=== PATIENT | male | born 1940 | race Caucasian/White ===

== ENCOUNTER → 2021-07-04 14:38 | Outpatient (BNVA) | payer MEDICARE, SELFPAY | PROVIDERS: PCP Internal Medicine; Visit Provider Internal Medicine | DX: J43.9 Emphysema, unspecified (principal); R06.00 Dyspnea, unspecified | CPT/HCPCS: 99202 ==

== ENCOUNTER 2021-07-24 13:46 | Outpatient (REF) | payer MEDICARE, SELFPAY ==
--- NOTE | 2021-07-24 17:22 | PFT_ITS ---
Forced vital capacity 101, FEV1 81, FEV1/FVC ratio 56, SIU39-90 is 42%, and MVV 72%. Post bronchodilator therapy, there is a slight improvement in [id number]. Total lung capacity 100%. Residual volume 119%. Diffusion capacity is markedly decreased. CONCLUSION: There is evidence of alde-th-ypomkvpy degree of obstructive airway disorder. Only minimal improvement noted as indicated by slight increase in [id number]. Diffusion capacity is markedly decreased and this may be due to non-pulmonary factors, but also may be due to pulmonary vascular disease or pulmonary emphysema. Clinical correlation is recommended. MD LEWIS Rod/MODBen / [id number]
== END 2021-07-24 13:47 | disposition home or self-care (01) ==
LOC: HO.RESP 13:46
PROVIDERS: PCP Internal Medicine; Visit Provider Internal Medicine
DX: R06.00 Dyspnea, unspecified (principal); J43.9 Emphysema, unspecified
CPT/HCPCS: 94060; 94727; 94729

== ENCOUNTER → 2021-08-01 13:37 | Outpatient (BNVA) | payer MEDICARE, SELFPAY | PROVIDERS: PCP Internal Medicine; Visit Provider Internal Medicine | DX: J44.9 Chronic obstructive pulmonary disease, unspecified (principal); R06.00 Dyspnea, unspecified; I73.00 Raynaud's syndrome without gangrene; Z79.899 Other long term (current) drug therapy | CPT/HCPCS: 99212 ==

== ENCOUNTER → 2021-10-08 12:59 | Outpatient (BNVA) | payer MEDICARE, SELFPAY | PROVIDERS: PCP Internal Medicine; Visit Provider Internal Medicine | DX: J44.9 Chronic obstructive pulmonary disease, unspecified (principal); R06.00 Dyspnea, unspecified | CPT/HCPCS: 99212 ==

== ENCOUNTER → 2022-04-09 13:14 | Outpatient (BNVA) | payer MEDICARE, SELFPAY | PROVIDERS: PCP Internal Medicine; Visit Provider Internal Medicine | DX: J44.9 Chronic obstructive pulmonary disease, unspecified (principal); R06.00 Dyspnea, unspecified | CPT/HCPCS: 99212 ==

== ENCOUNTER → 2022-10-09 13:19 | Outpatient (BNVA) | payer MEDICARE, SELFPAY | PROVIDERS: PCP Internal Medicine; Visit Provider Internal Medicine | DX: J43.9 Emphysema, unspecified (principal) | CPT/HCPCS: 99212 ==

== ENCOUNTER 2023-04-01 13:19 | Outpatient (AMB) | payer MEDICARE, SELFPAY ==
[2023-04-01 13:42] VITALS: BP 94/52; PULSE 74; O2SAT 94; BMI 24.2
--- NOTE | 2023-04-01 13:42 | MHC.OFFVIS ---
Intake Vital Signs 04/01/23 13:42 Height 5 ft 9 in Weight 164 lb BMI 24.2 BP 94/52 L Blood Pressure Location Lt brachial Position Sitting Pulse 74 Pulse Source Pulse Oximeter Pulse Oximetry (%) 94 Oxygen Delivery Method Room Air Intake Visit Reasons: COPD Intake Note: pt is here for follow up and states things aren't any better but things are not worse. Green Marketer Required: No Allergies zithomax Adverse Reaction (Severe, Uncoded 04/01/23 14:13) Unknown Medication List - Last Reconciled 04/01/23 by Donny Peña MD allopurinol 300 mg PO DAILY apixaban (Eliquis) 5 mg PO BID diltiazem HCl 240 mg PO DAILY doxycycline hyclate 100 mg PO BID 10 days fluticasone propion-salmeterol 250-50 mcg/dose (Wixela Inhub) 1 ea inhalation Q12H furosemide 40 mg PO DAILY furosemide 20 mg PO .mwf gemfibrozil 600 mg PO BEDTIME metoprolol tartrate 50 mg PO BID Do you need a note to return to daycare/school/sports/work: No HPI COPD HPI Details DANI IS 83 YEARS OLD VERY PLEASANT GENTLEMAN, COMES OF TO 6 MONTHS FOR FOLLOW-UP. PULMONARY STATUS HAS REMAINED VERY STABLE WITHOUT ANY WORSENING. HE CONTINUE TO HAVE MILD INTERMITTENT COUGH AND GETS SHORT OF BREATH WHEN HE HAS TO EXERT. USES WIXELA 250-50 1 INHALATION B.I.D., AND RARELY NEEDS TO USE THE ALBUTEROL INHALER. HE HAD COVID INFECTION IN JUNE 2022 AND NOT AFTERWARDS. HE HAS RECEIVED THE COVID BOOSTER A FEW WEEKS AGO. [facility] Medical History Raynauds syndrome COPD (chronic obstructive pulmonary disease) SANTILLAN (dyspnea on exertion) Pulmonary emphysema Social History Patient Tobacco Use Status: Former Tobacco user Review of Systems Const All systems reviewed & are unremarkable except as noted in HPI and below Eyes Reports no additional complaints ENT Reports nasal congestion (Mild off and on) Card Denies chest pain, Reports irregular heart rhythm (RATE WELL CONTROLLED) and Denies leg edema Resp Reports as per HPI GI Reports no additional complaints Reports no additional complaints Musc Reports no additional complaints Skin/Breast Reports system reviewed and no additional complaints, except as documented and Reports other (His hands get very cold and bluish when he walks outdoors in cold weather) Neuro Reports no additional complaints Psych Reports no additional complaints Physical Exam Vital Signs: Last Vital Signs Pulse 74 04/01/23 13:42 BP 94/52 L 04/01/23 13:42 Pulse Ox 94 04/01/23 13:42 Oxygen Delivery Method Room Air 04/01/23 13:42 BMI result Body Mass Index 24.2 Const General: comfortable, no acute distress, alert and awake Orientation/consciousness: patient oriented x3 HEENT Head: Yes normal to inspection General nose exam: No nasal polyps present and No nasal discharge present Face and sinus: Yes sinuses nontender Mouth: oropharynx normal Throat: Yes posterior oropharynx normal Eyes General: appearance normal, both eyes and all related structures Neck Neck: Yes normal visual inspection, Yes no lymphadenopathy, Yes trachea midline and Yes no JVD Thyroid: Thyroid normal Chest Chest palpation & inspection: normal inspection of the chest (EXCEPT FOR A SURGICAL SCAR OVER THE LEFT UPPER THORACIC AREA, FROM AN OLD S), normal palpation of entire chest wall and no tenderness Resp Other: Percussion note resonant, breath sounds are distant with slightly prolonged expiratory phase. No wheezes rhonchi or crepitations are heard. Cardio Palpation: normal PMI Rate: regular rate Rhythm: abnormal rhythm (Afib) Heart sounds: no gallops and no murmurs GI Palpation (GI): Soft to palpation, nontender, No hepatosplenomegaly present and no masses Auscultation: normal bowel sounds Back/Spine/Pelvis Thoracic/Lumbar Spine: thoracic and lumbar spine normal to inspection Skin General skin exam: no rashes or lesions noted and other (Both hands cold and bluish, returned to normal after warming) Neuro General: patient oriented x3 and no focal motor deficits Cranial nerves: Yes CN's II-XII intact bilaterally Extrem General: Yes normal to inspection, Yes no clubbing, cyanosis or edema and Yes no calf tenderness Psych Appearance: grossly normal and well kempt Speech and movement: Normal speech and movement present Assessment & Plan Assessment & Plan (1) Pulmonary emphysema: Comment: CLINICALLY WELL ACCORDING TO CT SCAN OF THE CHEST HE DOES HAVE SIGNIFICANT DEGREE OF PULMONARY EMPHYSEMA. LUCKILY HIS PULMONARY FUNCTION TEST IS WELL PRESERVED, EXCEPT FOR DECREASED DLCO. THIS MAY EXPLAIN DYSPNEA ON EXERTION , DUE TO PULMONARY EMPHYSEMA AND LOW DLCO. Code(s): J43.9 - Emphysema, unspecified (2) COPD (chronic obstructive pulmonary disease): Comment: PER PULMONARY FUNCTION TEST PATIENT DOES HAVE EVIDENCE OF MILD TO MODERATE DEGREE OF OBSTRUCTIVE AIRWAY DISORDER ( COPD ) WITH PARTIAL RESPONSE TO BRONCHODILATOR THERAPY. TX : CONTINUE WIXELA 250-50 1 INHALATION B.I.D. USE PROAIR 2 PUFFS Q 6 HOURS ONLY P.R.N., Code(s): J44.9 - Chronic obstructive pulmonary disease, unspecified Coding Level of Care Code Est Pt Level 3 (81783) Diagnoses Pulmonary emphysema J43.9 COPD (chronic obstructive pulmonary disease) J44.9
== END 2023-04-01 14:13 | disposition home or self-care (01) ==
PROVIDERS: PCP Internal Medicine; Visit Provider Internal Medicine
DX: J44.9 Chronic obstructive pulmonary disease, unspecified (principal)
CPT/HCPCS: 99213

== ENCOUNTER → 2023-04-01 13:19 | Outpatient (BNVA) | payer MEDICARE, SELFPAY | PROVIDERS: Visit Provider Internal Medicine | DX: J43.9 Emphysema, unspecified (principal) | CPT/HCPCS: 99212 ==

== ENCOUNTER 2023-06-03 13:44 | Outpatient (AMB) | payer MEDICARE, SELFPAY ==
[2023-06-03 13:47] VITALS: BP 118/62; PULSE 77; O2SAT 95; BMI 24.4
--- NOTE | 2023-06-03 13:47 | MHC.OFFVIS ---
Intake Vital Signs 06/03/23 13:47 Height 5 ft 9 in Weight 165 lb BMI 24.4 BP 118/62 Blood Pressure Location Lt brachial Position Sitting Pulse 77 Pulse Source Pulse Oximeter Pulse Oximetry (%) 95 Oxygen Delivery Method Room Air Intake Visit Reasons: Fatigue/SOB Health Sciences Department Chair Required: No Global Sales Director: Global Sales Director offered & declined Accompanied by: Self / Same As Patient Allergies zithomax Adverse Reaction (Severe, Uncoded 06/03/23 13:53) Unknown Medication List - Last Reconciled 06/03/23 by Linda Estrada LPN allopurinol 300 mg PO DAILY apixaban (Eliquis) 5 mg PO BID diltiazem HCl 240 mg PO DAILY fluticasone propion-salmeterol 250-50 mcg/dose (Wixela Inhub) 1 ea inhalation Q12H furosemide 20 mg PO DAILY furosemide 40 mg PO DAILY gemfibrozil 600 mg PO BEDTIME metoprolol tartrate 50 mg PO BID HPI Fatigue/SOB HPI Details Giorgi is a pleasant 83 year old male, former smoker with 30pyh, quit 38+ years ago, with underlying COPD, emphysema, atrial fibrillation maintained on eliquis, h/o DVT PE, CHF (EF 55-60% 06/20) on lasix, and Raynaud's. At baseline, he is moderately controlled on Wixela and albuterol MDI. Today he presents for a hospital follow up. He reports worsening dyspnea on exertion with associated fatigue over 3-4 weeks and was evaluated at [facility] on 05/23/23 with symptoms consistent with CHF/COPD exacerbation. He also reported productive cough with dark sputum x 1 week. CXR revealed bilateral pleural effusions and bibasilar atlectasis with coarse interstitial markings, full report below. He was treated with IV lasix, duonebs and discharged on 5 days of oral prednisone. He did note that he had recently decreased his lasix in the weeks prior to ED and after discharge has been increased back to 40 mg 3x/ week and 20 mg 4x/week. He denies any BLE, although wears compression stockings and denies orthopnea. He is under the care of [facility]. He feels as though he is back to baseline now, which is dyspnea with moderate exertion however he does note occasionally he is breathless with minimal exertion such as getting dressed. Of note, his DLCO from was [address] revealed severe emphysema. [facility] Medical History Raynauds syndrome COPD (chronic obstructive pulmonary disease) SANTILLAN (dyspnea on exertion) Pulmonary emphysema Social History (Updated 06/03/23 @ 13:56 by Linda Estrada LPN) Patient Tobacco Use Status: Former Tobacco user Smoked in Last 30 Days: No Review of Systems ENT Reports Normal hearing present Neuro Reports Normal hearing present Physical Exam Vital Signs: Last Vital Signs Pulse 77 06/03/23 13:47 BP 118/62 06/03/23 13:47 Pulse Ox 95 06/03/23 13:47 Oxygen Delivery Method Room Air 06/03/23 13:47 BMI result Body Mass Index 24.4 Const General: cooperative, healthy appearing, comfortable, no acute distress, well developed and alert Orientation/consciousness: patient oriented x3 Limitations: no limitations HEENT Head: Yes normal to inspection, Yes normocephalic and Yes atraumatic Ears: hearing grossly normal bilaterally and external ears normal Eyes General: appearance normal, both eyes and all related structures Eyelids: Yes eyelids normal Sclerae: sclerae normal EOM: EOMs intact bilaterally Neck Neck: Yes normal visual inspection and Yes no lymphadenopathy Lymphatic: no lymphadenopathy noted Chest Chest palpation & inspection: normal inspection of the chest Resp Other: diminished lung sounds bilaterally Effort & Inspection: normal respiratory effort, able to speak in complete sentences, no audible wheezes, no cough, no stridor, not tachypneic, no tripod positioning and no use of accessory muscles Cardio Jugular venous distension: no JVD Rate: regular rate Rhythm: regular rhythm Skin Other: warm, dry General skin exam: no rashes or lesions noted Neuro General: patient oriented x3 Cranial nerves: Yes Normal hearing present Cognition (Neuro): normal cognition Gait exam (Neuro): Normal gait present Extrem General: Yes normal to inspection, Yes capillary refill normal, Yes no clubbing, cyanosis or edema and Yes no pedal edema Psych Appearance: grossly normal and well kempt Speech and movement: Normal speech and movement present and Clear speech present Affect: normal affect Attitude: cooperative Thought process: Normal thought process present Thought content: Normal thought content present Insight: Good insight present (Psych) Judgement: Good judgement present (Psych) Office Procedures 6 Minute Walk Time:: 14:20 SPO2 % at rest: 96 Pulse at rest: 70 SPO2 % during excercise: 83 Pulse during excercise: 90 SPO2 % after excercise: 94 Pulse after excercise: 80 Distance in yards walked: 250 Performance Observations:: Patient walked on level ground unassisted at moderate pace. After approx 100 yards patient's O2 saturation decreased to 89% and he expressed fatigue. Upon sitting his O2 saturation was 83% pulse rate 90. O2 applied via nasal cannula at 1L. After a couple of minutes O2 saturation increased to 93%. Patient walked additional 50 yards and saturation decreased to 87%. O2 increased to 2L. Raissa walked approx 100 yards more and O2 saturation remained at 92%. Patient reports he gets short of breath and tires easily when walking on an incline or any distance. Patient would benefit from the use of supplemental O2 at 2L. [id number] - 6 Minute Walk Results Reviewed Results Reviewed: Assessment & Plan Assessment & Plan (1) COPD (chronic obstructive pulmonary disease): Code(s): J44.9 - Chronic obstructive pulmonary disease, unspecified (2) CHF (congestive heart failure): Code(s): I50.9 - Heart failure, unspecified Plan Giorgi presents for hospital follow up after recent admission at [facility] for CHF/COPD exacerbation. He continues to report dyspnea on minimal to moderate exertion. 6MWT was performed and patient desaturated to 83%, requiring 2 liters of supplemental oxygen with ambulation. We discussed the importance of supplemental oxygen and the adverse effects of hypoxia. At this time, patient states he is in the donid hole for medicare and would like to hold off on receiving a prescription for supplemental oxygen. Patient is aware if he would like to proceed with supplemental oxygen he will call the office. Encouraged patient to use his home pulse oximeter when ambulating to monitor oxygen saturation. All questions were answered and patient is in agreement of plan. Will follow up with Dr. Peña in September for regularly scheduled appointment or sooner if needed. Orders: Orders AMB 6 minute walk Today I50.9 - Heart failure, unspecified, J44.9 - Chronic obstructive pulmonary disease, unspecified Coding Level of Care Code Est Pt Level 4 (98457) Diagnoses COPD (chronic obstructive pulmonary disease) J44.9 CHF (congestive heart failure) I50.9 CPT Codes Coding ([id number])
[2023-06-03 14:52] VITALS: PULSE 70; O2SAT 96
== END 2023-06-03 15:49 | disposition home or self-care (01) ==
PROVIDERS: PCP Internal Medicine; Visit Provider Nurse Practitioner Family
DX: J44.9 Chronic obstructive pulmonary disease, unspecified (principal); I50.9 Heart failure, unspecified
CPT/HCPCS: 94618; 99214

== ENCOUNTER → 2023-06-03 13:44 | Outpatient (BNVA) | payer MEDICARE, SELFPAY | PROVIDERS: PCP Internal Medicine; Visit Provider Nurse Practitioner Family | DX: J44.9 Chronic obstructive pulmonary disease, unspecified (principal); I50.9 Heart failure, unspecified | CPT/HCPCS: 94618; 99212 ==

== ENCOUNTER 2023-07-14 10:30 | Outpatient (AMB) | payer MEDICARE, SELFPAY ==
[2023-07-14 10:38] VITALS: BP 108/64; PULSE 82; O2SAT 98; BMI 25.1
--- NOTE | 2023-07-14 10:38 | A.OFFVIS_ITS ---
Intake Vital Signs 07/14/23 10:38 Height 5 ft 9 in Weight 169 lb 12.095 oz BMI 25.1 BP 108/64 Blood Pressure Location Lt brachial Position Sitting Pulse 82 Pulse Source Doppler Pulse Oximetry (%) 98 Oxygen Delivery Method Nasal Cannula Oxygen Flow Rate 2 Intake Visit Reasons: new to oxygen Intake Note: Patient is here to follow up on new use of Oxygen (2L), patient c/o not being able to move around with oxygen tank. Patient started on oxygen for about 1 month ago. Allergies zithomax Adverse Reaction (Severe, Uncoded 07/14/23 11:17) Unknown Medication List - Last Reconciled 07/14/23 by Donny Peña MD allopurinol 300 mg PO DAILY apixaban (Eliquis) 5 mg PO BID diltiazem HCl 240 mg PO DAILY fluticasone propion-salmeterol 250-50 mcg/dose 1 inh inhalation Q12H furosemide 20 mg PO DAILY furosemide 40 mg PO DAILY gemfibrozil 600 mg PO BEDTIME metoprolol tartrate 50 mg PO BID Do you need a note to return to daycare/school/sports/work: No HPI new to oxygen HPI Details 83 years old very pleasant gentleman is here for follow-up after he was started on O2 therapy. He was seen by Gilda Xiong our nurse practitioner, on 06/03 for increased shortness of breath. This was post hospitalization visit. He was found to have hypoxemia and very quickly desaturated on walking. He was started on oxygen therapy. He uses stationary concentrator his O2 2 L/minute at nighttime. During the daytime when he goes up and down stairs he tries to use the portable cylinder, but complains it is heavy to carry around. Also claims that he does not feel much difference whether he is using the portable O2 are not. He does check his O2 sats and usually when sitting at rest it is in mid 90s, But when he goes downstairs without oxygen, it can be as low as 85-87. [facility] Medical History (Updated 07/14/23 @ 11:30 by Donny Peña MD) Hypoxemia Raynauds syndrome COPD (chronic obstructive pulmonary disease) SANTILLAN (dyspnea on exertion) Pulmonary emphysema Social History Patient Tobacco Use Status: Former Tobacco user Review of Systems Const All systems reviewed & are unremarkable except as noted in HPI and below Eyes Reports no additional complaints ENT Reports Normal hearing present and Reports nasal congestion (Mild off and on) Card Denies chest pain, Reports irregular heart rhythm (RATE WELL CONTROLLED) and Denies leg edema Resp Reports as per HPI GI Reports no additional complaints Reports no additional complaints Musc Reports no additional complaints Skin/Breast Reports system reviewed and no additional complaints, except as documented and Reports other (His hands get very cold and bluish when he walks outdoors in cold weather) Neuro Reports no additional complaints and Reports Normal hearing present Psych Reports no additional complaints Physical Exam Vital Signs: Last Vital Signs Pulse 82 07/14/23 10:38 BP 108/64 07/14/23 10:38 Pulse Ox 98 07/14/23 10:38 Oxygen Delivery Method Nasal Cannula 07/14/23 10:38 Oxygen Flow Rate 2 07/14/23 10:38 BMI result Body Mass Index 25.1 Const General: cooperative, healthy appearing, comfortable, no acute distress, well developed and alert Orientation/consciousness: patient oriented x3 Limitations: no limitations HEENT Head: Yes normal to inspection, Yes normocephalic and Yes atraumatic Ears: hearing grossly normal bilaterally and external ears normal Eyes General: appearance normal, both eyes and all related structures Eyelids: Yes eyelids normal Sclerae: sclerae normal EOM: EOMs intact bilaterally Neck Neck: Yes normal visual inspection and Yes no lymphadenopathy Lymphatic: no lymphadenopathy noted Chest Chest palpation & inspection: normal inspection of the chest, normal palpation of entire chest wall and no tenderness Resp Effort & Inspection: normal respiratory effort, able to speak in complete sentences, no audible wheezes, no cough, no stridor, not tachypneic, no tripod positioning and no use of accessory muscles Auscultation: no crackles and no wheezes Cardio Jugular venous distension: no JVD Rate: regular rate Rhythm: regular rhythm Skin Other: warm, dry General skin exam: no rashes or lesions noted Neuro General: patient oriented x3 Cranial nerves: Yes Normal hearing present Cognition (Neuro): normal cognition Gait exam (Neuro): Normal gait present Extrem General: Yes normal to inspection, Yes capillary refill normal, Yes no clubbing, cyanosis or edema and Yes no pedal edema Psych Appearance: grossly normal and well kempt Speech and movement: Normal speech and movement present and Clear speech present Affect: normal affect Attitude: cooperative Thought process: Normal thought process present Thought content: Normal thought content present Insight: Good insight present (Psych) Judgement: Good judgement present (Psych) Results Reviewed Results Reviewed: Walked with him on room air for 2 minutes and the O2 sat dropped down to 87, He was started on O2 2 L/minute, and then 3 L/minute which brought his O2 sat to 90-91%. Assessment & Plan Assessment & Plan (1) COPD (chronic obstructive pulmonary disease): Comment: He is a known case of COPD supposed to be using Wixela 250-50 twice a day but does not use regularly . He does not have any rescue inhaler Code(s): J44.9 - Chronic obstructive pulmonary disease, unspecified Plan: Advised to use Wixela 250-51 inhalation b.i.d. regularly (2) CHF (congestive heart failure): Comment: On top of COPD he also suffers from At. Fib and chronic congestive heart failure which has precipitated hypoxemia. CHF seems to be under control. Code(s): I50.9 - Heart failure, unspecified Plan: Continue the cardiac meds and Eliquis as prescribed by cardiology service (3) Pulmonary emphysema: Comment: CLINICALLY WELL ACCORDING TO CT SCAN OF THE CHEST HE DOES HAVE SIGNIFICANT DEGREE OF PULMONARY EMPHYSEMA. LUCKILY HIS PULMONARY FUNCTION TEST WAS WELL PRESERVED, EXCEPT FOR DECREASED DLCO. THIS MAY EXPLAIN DYSPNEA ON EXERTION , DUE TO PULMONARY EMPHYSEMA AND LOW DLCO. Code(s): J43.9 - Emphysema, unspecified Plan: EXPLAINED TO THE PT . (4) SANTILLAN (dyspnea on exertion): Comment: I THINK HIS DYSPNEA ON EXERTION IS DUE TO COMBINATION OF COPD AND ALSO CONTRIBUTED BY ATRIAL FIBRILLATION/CHF HE IS DOING FAIRLY WELL AND REMAINS STABLE. Code(s): R06.00 - Dyspnea, unspecified Plan: ADVISED TO CONTINUE THE PRESENT MEDICATION, TRY TO WALK SHORT DISTANCES EVERY DAY, AND DO DEEP BREATHING EXERCISES. (5) Hypoxemia: Comment: PATIENT HAS EXERCISE INDUCED HYPOXEMIA, WELL . NOCTURNAL HYPOXEMIA Code(s): R09.02 - Hypoxemia Plan: EXPLAINED TO HIM THAT HE DOES NEED TO USE PORTABLE O2 MAY INCREASE TO 3 L/MINUTE TO KEEP O2 SAT ABOVE 90% USE O2 2 L/MINUTE AT NIGHT, AND ALSO P.R.N. DURING THE DAYTIME. ON HIS NEXT VISIT WE WILL TEST HIM TO SEE IF HE QUALIFIES FOR O2 CONSERVING UNIT (POC ) Coding Level of Care Code Est Pt Level 4 (64271) Diagnoses COPD (chronic obstructive pulmonary disease) J44.9 CHF (congestive heart failure) I50.9 Pulmonary emphysema J43.9 SANTILLAN (dyspnea on exertion) R06.00 Hypoxemia R09.02
== END 2023-07-14 11:17 | disposition home or self-care (01) ==
PROVIDERS: PCP Internal Medicine; Visit Provider Internal Medicine
DX: J44.9 Chronic obstructive pulmonary disease, unspecified (principal); I50.9 Heart failure, unspecified; J43.9 Emphysema, unspecified; R06.00 Dyspnea, unspecified; R09.02 Hypoxemia
CPT/HCPCS: 99214

== ENCOUNTER → 2023-07-14 10:30 | Outpatient (BNVA) | payer MEDICARE, SELFPAY | PROVIDERS: PCP Internal Medicine; Visit Provider Internal Medicine | DX: J44.9 Chronic obstructive pulmonary disease, unspecified (principal); I50.9 Heart failure, unspecified; J43.9 Emphysema, unspecified; R06.00 Dyspnea, unspecified; R09.02 Hypoxemia | CPT/HCPCS: 99212 ==

== ENCOUNTER 2023-08-26 09:51 | Outpatient (AMB) | payer MEDICARE, SELFPAY ==
[2023-08-26 10:08] VITALS: BP 94/58; PULSE 76; O2SAT 96; BMI 23.4
--- NOTE | 2023-08-26 10:08 | MHC.OFFVIS ---
Intake Vital Signs 08/26/23 10:08 Height 5 ft 9 in Weight 158 lb 11.725 oz BMI 23.4 BP 94/58 L Blood Pressure Location Lt brachial Position Sitting Pulse 76 Pulse Source Pulse Oximeter Pulse Oximetry (%) 96 Oxygen Delivery Method Room Air Intake Visit Reasons: Needs conserving trial Intake Note: pt is here for follow up and states he is using his oxygen all night, and would like a regulator or POC, breathing is short, some coughing and wheeze. most cough is due to phelgm Allergies zithomax Adverse Reaction (Severe, Uncoded 08/26/23 10:22) Unknown Medication List - Last Reconciled 08/26/23 by Donny Peña MD albuterol sulfate 90 mcg/actuation inhalation allopurinol 300 mg PO DAILY apixaban (Eliquis) 5 mg PO BID diltiazem HCl 240 mg PO DAILY fluticasone propion-salmeterol 250-50 mcg/dose 1 inh inhalation Q12H furosemide 20 mg PO DAILY furosemide 40 mg PO DAILY gemfibrozil 600 mg PO BEDTIME latanoprost 0.005% drps ophthalmic (eye) metoprolol tartrate 50 mg PO BID Do you need a note to return to daycare/school/sports/work: No HPI Needs conserving trial HPI Details 83 YEARS OLD VERY PLEASANT GENTLEMAN IS HERE FOR FOLLOW-UP. HE IS USING WIXELA TWICE A DAY REGULARLY. AND HAS NOT NEEDED TO USE THE RESCUE INHALER AT ALL. HIS MAIN COMPLAINT IS GETTING SHORT OF BREATH WHEN HE WALKS AROUND ESPECIALLY IF HE WALKS UP HILL OR CLIMBS STAIRS. HE DOES USE O2. 2 L/MINUTE AT NIGHT HE IS SUPPOSED TO USE PORTABLE OXYGEN BUT HE WANTS TO HAVE A LIGHTWEIGHT UNIT/ PREFERABLY POC. DENIES COUGH OR WHEEZING. [facility] Medical History Hypoxemia Raynauds syndrome COPD (chronic obstructive pulmonary disease) SANTILLAN (dyspnea on exertion) Pulmonary emphysema Social History Patient Tobacco Use Status: Former Tobacco user Review of Systems Const All systems reviewed & are unremarkable except as noted in HPI and below Eyes Reports no additional complaints ENT Reports Normal hearing present and Reports nasal congestion (Mild off and on) Card Denies chest pain, Reports irregular heart rhythm (RATE WELL CONTROLLED) and Denies leg edema Resp Reports as per HPI GI Reports no additional complaints Reports no additional complaints Musc Reports no additional complaints Skin/Breast Reports system reviewed and no additional complaints, except as documented and Reports other (His hands get very cold and bluish when he walks outdoors in cold weather) Neuro Reports no additional complaints and Reports Normal hearing present Psych Reports no additional complaints Physical Exam Vital Signs: Last Vital Signs Pulse 76 08/26/23 10:08 BP 94/58 L 08/26/23 10:08 Pulse Ox 96 08/26/23 10:08 Oxygen Delivery Method Room Air 08/26/23 10:08 BMI result Body Mass Index 23.4 Const General: cooperative, healthy appearing, comfortable, no acute distress, well developed and alert Orientation/consciousness: patient oriented x3 Limitations: no limitations HEENT Head: Yes normal to inspection, Yes normocephalic and Yes atraumatic Ears: hearing grossly normal bilaterally and external ears normal Eyes General: appearance normal, both eyes and all related structures Eyelids: Yes eyelids normal Sclerae: sclerae normal EOM: EOMs intact bilaterally Neck Neck: Yes normal visual inspection and Yes no lymphadenopathy Lymphatic: no lymphadenopathy noted Chest Chest palpation & inspection: normal inspection of the chest, normal palpation of entire chest wall and no tenderness Resp Other: Percussion note hyper-resonant. Breath sounds are. Diminished with prolonged expiratory phase There are no audible wheezes or crepitations . Cardio Jugular venous distension: no JVD Rate: regular rate Rhythm: regular rhythm Heart sounds: no gallops and no murmurs GI Inspection: Yes normal to inspection Palpation (GI): nontender and no masses Back/Spine/Pelvis Cervical Spine: normal cervical lordosis Thoracic/Lumbar Spine: thoracic and lumbar spine normal to inspection Skin Other: warm, dry General skin exam: no rashes or lesions noted Neuro General: patient oriented x3 and gait normal Cranial nerves: Yes Normal hearing present Cognition (Neuro): normal cognition Gait exam (Neuro): Normal gait present Extrem General: Yes normal to inspection, Yes capillary refill normal, Yes no clubbing, cyanosis or edema and Yes no pedal edema Psych Appearance: grossly normal and well kempt Speech and movement: Normal speech and movement present and Clear speech present Affect: normal affect Attitude: cooperative Thought process: Normal thought process present Office Procedures 6 Minute Walk Time:: 10:30 SPO2 % at rest: 94 Pulse at rest: 65 SPO2 % during excercise: 83 Pulse during excercise: 85 SPO2 % after excercise: 96 Pulse after excercise: 77 Distance in yards walked: 120 Kenneth Score: 3 Performance Observations:: Giorgi walked on level ground without assistance, he walked for 50 yards before his SPO2 decreased to 85% on room air, O2 started on pulsed setting 2 his SPO2 recovered to 94% but with exertion his SPO2 decreased to 83% on settings 3,4 and 5. MD sheppard. [address]29 - 6 Minute Walk Results Reviewed Results Reviewed: 6 minutes walk O2 sat drops down to 87% on walking on room air. Try to counter hypoxemia with O2 conserving ,mode However could not maintain O2 sat in normal range even with 5 L/minute. Assessment & Plan Assessment & Plan (1) COPD (chronic obstructive pulmonary disease): Comment: He is a known case of COPD sec to pulmonary emphysema. Currently it is staying very stable and he has had no acute exacerbation. Code(s): J44.9 - Chronic obstructive pulmonary disease, unspecified Plan: Continue to use Wixela 250-51 inhalation b.i.d. And albuterol HFA 2 puffs Q 4-6 hours only p.r.n. (2) SANTILLAN (dyspnea on exertion): Comment: I THINK HIS DYSPNEA ON EXERTION IS DUE TO COMBINATION OF COPD AND ALSO CONTRIBUTED BY ATRIAL FIBRILLATION/CHF HE IS DOING FAIRLY WELL AND REMAINS STABLE. Code(s): R06.00 - Dyspnea, unspecified Plan: Using portable oxygen will help, and he is encouraged to use 2-3 L/minute when he has to walk outdoors or do any physical work (3) Hypoxemia: Comment: PATIENT HAS EXERCISE INDUCED HYPOXEMIA, WELL . NOCTURNAL HYPOXEMIA Code(s): R09.02 - Hypoxemia Plan: He continues to use O2 2 L/minute at night Did not qualify for using O2 conserving unit. So advised to use the portable cylinder with 2-3 L minute when he goes outdoors Orders: Orders AMB 6 minute walk Today J44.9 - Chronic obstructive pulmonary disease, unspecified Coding Level of Care Code Est Pt Level 3 (16532) Diagnoses COPD (chronic obstructive pulmonary disease) J44.9 SANTILLAN (dyspnea on exertion) R06.00 Hypoxemia R09.02 CPT Codes Coding ([id number])
[2023-08-26 10:40] VITALS: PULSE 65; O2SAT 94
== END 2023-08-26 10:41 | disposition home or self-care (01) ==
PROVIDERS: PCP Internal Medicine; Visit Provider Internal Medicine
DX: J44.9 Chronic obstructive pulmonary disease, unspecified (principal); R06.00 Dyspnea, unspecified; R09.02 Hypoxemia
CPT/HCPCS: 94618; 99213

== ENCOUNTER → 2023-08-26 09:51 | Outpatient (BNVA) | payer MEDICARE, SELFPAY | PROVIDERS: PCP Internal Medicine; Visit Provider Internal Medicine | DX: J44.9 Chronic obstructive pulmonary disease, unspecified (principal); R06.00 Dyspnea, unspecified; R09.02 Hypoxemia | CPT/HCPCS: 94618; 99212 ==

== ENCOUNTER 2023-10-07 13:25 | Outpatient (AMB) | payer MEDICARE, SELFPAY ==
[2023-10-07 13:36] VITALS: BP 98/54; PULSE 76; O2SAT 95; BMI 23.4
--- NOTE | 2023-10-07 13:36 | A.OFFVIS_ITS ---
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 COPD is remaining very stable with the use of Wixela 250-50 b.i.d.. He hardly needs to use the rescue inhaler. He does have intermittent bouts of cough mostly associated with nasal blockage. It is worse at the change of weather. He came mainly to discuss about portable oxygen concentrator( POC ) On his last visit he was tested and did not qualify for POC. He does have stationary concentrator and O2 cylinders at home. Uses O2 at night 2 L/minute. During the daytime uses the oxygen through concentrator as needed. When he goes outdoors he is not carrying the oxygen cylinders with him as he does not like. [facility] Medical History Hypoxemia Raynauds syndrome COPD (chronic obstructive pulmonary disease) SANTILLAN (dyspnea on exertion) Pulmonary emphysema Social History Patient Tobacco Use Status: Former Tobacco user Review of Systems Const All systems reviewed & are unremarkable except as noted in HPI and below Eyes Reports no additional complaints ENT Reports Normal hearing present and Reports nasal congestion (Mild off and on) Card Denies chest pain, Reports irregular heart rhythm (RATE WELL CONTROLLED) and Denies leg edema Resp Reports as per HPI GI Reports no additional complaints Reports no additional complaints Musc Reports no additional complaints Skin/Breast Reports system reviewed and no additional complaints, except as documented and Reports other (His hands get very cold and bluish when he walks outdoors in cold weather) Neuro Reports no additional complaints and Reports Normal hearing present Psych Reports no additional complaints Physical Exam Vital Signs: Last Vital Signs Pulse 76 10/07/23 13:36 BP 98/54 L 10/07/23 13:36 Pulse Ox 95 10/07/23 13:36 Oxygen Delivery Method Room Air 10/07/23 13:36 BMI result Body Mass Index 23.4 Const General: cooperative, healthy appearing, comfortable, no acute distress, well developed and alert Orientation/consciousness: patient oriented x3 Limitations: no limitations HEENT Head: Yes normal to inspection, Yes normocephalic and Yes atraumatic Ears: hearing grossly normal bilaterally and external ears normal Eyes General: appearance normal, both eyes and all related structures Eyelids: Yes eyelids normal Sclerae: sclerae normal EOM: EOMs intact bilaterally Neck Neck: Yes normal visual inspection and Yes no lymphadenopathy Lymphatic: no lymphadenopathy noted Chest Chest palpation & inspection: normal inspection of the chest, normal palpation of entire chest wall and no tenderness Resp Other: Percussion note hyper-resonant. Breath sounds are. Diminished with prolonged expiratory phase There are no audible wheezes or crepitations . Cardio Jugular venous distension: no JVD Rate: regular rate Rhythm: regular rhythm Heart sounds: no gallops and no murmurs GI Inspection: Yes normal to inspection Palpation (GI): nontender and no masses Back/Spine/Pelvis Cervical Spine: normal cervical lordosis Thoracic/Lumbar Spine: thoracic and lumbar spine normal to inspection Skin Other: warm, dry General skin exam: no rashes or lesions noted Neuro General: patient oriented x3 and gait normal Cranial nerves: Yes Normal hearing present Cognition (Neuro): normal cognition Gait exam (Neuro): Normal gait present Extrem General: Yes normal to inspection, Yes capillary refill normal, Yes no clubbing, cyanosis or edema and Yes no pedal edema Psych Appearance: grossly normal and well kempt Speech and movement: Normal speech and movement present and Clear speech present Affect: normal affect Attitude: cooperative Thought process: Normal thought process present Assessment & Plan Assessment & Plan (1) COPD (chronic obstructive pulmonary disease): Comment: He is a known case of COPD sec to pulmonary emphysema. Currently it is staying very stable and he has had no acute exacerbation. Code(s): J44.9 - Chronic obstructive pulmonary disease, unspecified Plan: Continue Wixela 250-51 inhalation b.i.d.. Use albuterol HFA 2 puffs Q 4-6 hours p.r.n. for any acute bouts of cough or wheezing. (2) Hypoxemia: Comment: PATIENT HAS EXERCISE INDUCED HYPOXEMIA, WELL . NOCTURNAL HYPOXEMIA Code(s): R09.02 - Hypoxemia Plan: Use O2 2 L/minute at night. Also use 2 L/minute during the day with any physical exertion. As he did not qualify for POC. He has to carry the cylinders with him when he goes outdoors but he does not like to do it. In this case I told him that he knee he should plan on going outdoors only for short times. Coding Level of Care Code Est Pt Level 3 (60363) Diagnoses COPD (chronic obstructive pulmonary disease) J44.9 Hypoxemia R09.02
== END 2023-10-07 14:56 | disposition home or self-care (01) ==
PROVIDERS: PCP Internal Medicine; Visit Provider Internal Medicine
DX: J44.9 Chronic obstructive pulmonary disease, unspecified (principal); R09.02 Hypoxemia
CPT/HCPCS: 99213

== ENCOUNTER → 2023-10-07 13:25 | Outpatient (BNVA) | payer MEDICARE, SELFPAY | PROVIDERS: PCP Internal Medicine; Visit Provider Internal Medicine | DX: J43.9 Emphysema, unspecified (principal); J44.9 Chronic obstructive pulmonary disease, unspecified; R09.02 Hypoxemia; Z99.81 Dependence on supplemental oxygen | CPT/HCPCS: 99212 ==

== ENCOUNTER 2024-04-08 13:39 | Outpatient (AMB) | payer MEDICARE, SELFPAY ==
[2024-04-08 13:44] VITALS: BP 110/62; PULSE 58; O2SAT 95; BMI 22.4
--- NOTE | 2024-04-08 13:44 | MHC.OFFVIS ---
Vital Signs 04/08/24 13:44 Height 5 ft 9 in Weight 152 lb BMI 22.4 BP 110/62 Blood Pressure Location Lt brachial Position Sitting Pulse 58 Pulse Source Pulse Oximeter Pulse Oximetry (%) 95 Oxygen Delivery Method Room Air Intake Visit Reasons: COPD Intake Note: pt is here for follow up and was dx with lung cancer being treated by Paddy Walsh at [facility]. He does use oxygen at night and portability, is interested in POC. 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: No Allergies zithomax Adverse Reaction (Severe, Uncoded 04/08/24 13:51) Unknown Medication List - Last Reconciled 04/08/24 by Donny Peña MD albuterol sulfate 90 mcg/actuation inhalation allopurinol 300 mg PO DAILY apixaban (Eliquis) 5 mg PO BID diltiazem HCl CD 240 mg PO DAILY fluticasone propion-salmeterol 250-50 mcg/dose 1 inh inhalation Q12H furosemide 20 mg PO DAILY furosemide 40 mg PO DAILY gemfibrozil 600 mg PO BEDTIME latanoprost 0.005% drps ophthalmic (eye) metoprolol tartrate 50 mg PO BID Do you need a note to return to daycare/school/sports/work: No HPI HPI COPD: Details: This 84 years old very pleasant gentleman is here for his routine 6 months follow-up for COPD. He uses Wixela 250-50 1 inhalation b.i.d. and albuterol HFA only once in a while. He is known to have nocturnal and exercise induced hypoxemia. He has stationary concentrator at home and uses O2 2 L/minute at night. He has not been able to use the portable cylinders when he goes outdoors, because of inconvenience. Recently diagnosed to have lung cancer of the right lung, and has been started on chemotherapy. Being followed up by Dr. Urban Walsh at [facility]. He is tolerating the chemotherapy except for decreased appetite and general weakness. He wants to get a POC for portability. [facility] Medical History (Updated 04/08/24 @ 14:17 by Donny Peña MD) Lung cancer Hypoxemia Raynauds syndrome COPD (chronic obstructive pulmonary disease) SANTILLAN (dyspnea on exertion) Pulmonary emphysema Social History Patient Tobacco Use Status: Former Tobacco user Review of Systems Const All systems reviewed & are unremarkable except as noted in HPI and below Eyes Reports no additional complaints ENT Reports Normal hearing present and Reports nasal congestion (Mild off and on) Card Denies chest pain, Reports irregular heart rhythm (RATE WELL CONTROLLED) and Denies leg edema Resp Reports as per HPI GI Reports no additional complaints Reports no additional complaints Musc Reports no additional complaints Skin/Breast Reports system reviewed and no additional complaints, except as documented and Reports other (His hands get very cold and bluish when he walks outdoors in cold weather) Neuro Reports no additional complaints and Reports Normal hearing present Psych Reports no additional complaints Physical Exam Vital Signs: Last Vital Signs Pulse 58 04/08/24 13:44 BP 110/62 04/08/24 13:44 Pulse Ox 95 04/08/24 13:44 Oxygen Delivery Method Room Air 04/08/24 13:44 BMI result Body Mass Index 22.4 Const General: cooperative, healthy appearing, comfortable, no acute distress, well developed and alert Orientation/consciousness: patient oriented x3 Limitations: no limitations HEENT Head: Yes normal to inspection, Yes normocephalic and Yes atraumatic Ears: hearing grossly normal bilaterally and external ears normal Eyes General: appearance normal, both eyes and all related structures Eyelids: Yes eyelids normal Sclerae: sclerae normal EOM: EOMs intact bilaterally Neck Neck: Yes normal visual inspection and Yes no lymphadenopathy Lymphatic: no lymphadenopathy noted Chest Chest palpation & inspection: normal inspection of the chest, normal palpation of entire chest wall and no tenderness Resp Other: Percussion note hyper-resonant. Breath sounds are. Diminished with prolonged expiratory phase There are no audible wheezes or crepitations . Cardio Jugular venous distension: no JVD Rate: regular rate Rhythm: regular rhythm Heart sounds: no gallops and no murmurs GI Inspection: Yes normal to inspection Palpation (GI): nontender and no masses Back/Spine/Pelvis Cervical Spine: normal cervical lordosis Thoracic/Lumbar Spine: thoracic and lumbar spine normal to inspection Skin Other: warm, dry General skin exam: no rashes or lesions noted Neuro General: patient oriented x3 and gait normal Cranial nerves: Yes Normal hearing present Cognition (Neuro): normal cognition Gait exam (Neuro): Normal gait present Extrem General: Yes normal to inspection, Yes capillary refill normal, Yes no clubbing, cyanosis or edema and Yes no pedal edema Psych Appearance: grossly normal and well kempt Speech and movement: Normal speech and movement present and Clear speech present Affect: normal affect Attitude: cooperative Thought process: Normal thought process present Office Procedures 6 Minute Walk Time:: 14:15 SPO2 % at rest: 93 Pulse at rest: 73 SPO2 % during excercise: 84 Pulse during excercise: 86 SPO2 % after excercise: 98 Pulse after excercise: 85 Distance in yards walked: 210 Supplemental Oxygen: 3 l cont Performance Observations:: Pt. tried on Bruna started with O2 setting 2l, desat to 84%, attempted on higher settings but failed to maintain a sat over 89%. Sat remains stable at 95-98% on cont oxygen 3l flow. Test performed by Akiko Polanco [id number] - 6 Minute Walk Results Reviewed Results Reviewed: 6 MINUTES WALK TEST WAS DONE. RESTING O2 SAT NORMAL BUT HE DESATURATES VERY QUICKLY. PATIENT DID NOT QUALIFY FOR POC, HE COULD NOT MAINTAIN THE O2 SAT ABOVE 90% WITH O2 CONSERVING MODE. Assessment & Plan Assessment & Plan (1) Pulmonary emphysema: Comment: CLINICALLY WELL ACCORDING TO CT SCAN OF THE CHEST HE DOES HAVE SIGNIFICANT DEGREE OF PULMONARY EMPHYSEMA. LUCKILY HIS PULMONARY FUNCTION TEST WAS WELL PRESERVED, EXCEPT FOR DECREASED DLCO. THIS MAY EXPLAIN DYSPNEA ON EXERTION , DUE TO PULMONARY EMPHYSEMA AND LOW DLCO. Code(s): J43.9 - Emphysema, unspecified Category: Medical Plan: Continue treatment for COPD. (2) COPD (chronic obstructive pulmonary disease): Comment: He is a known case of COPD sec to pulmonary emphysema. Currently it is staying very stable and he has had no acute exacerbation. Code(s): J44.9 - Chronic obstructive pulmonary disease, unspecified Category: Medical Plan: Continue to use Wixela 250-50 1 inhalation b.i.d.. Use albuterol HFA 1 or 2 puffs Q 6 hours only p.r.n. ( he is using only about once or twice a month if needed) (3) Hypoxemia: Comment: PATIENT HAS EXERCISE INDUCED HYPOXEMIA, WELL . NOCTURNAL HYPOXEMIA Code(s): R09.02 - Hypoxemia Category: Medical Plan: Use O2 2 L/minute at night during sleep. Use O2 2 L/minute with the portable unit when going outdoors or doing any physical work at home . NOTED ABOVE HE COULD NOT MAINTAIN O2 SAT ABOVE 90% WITH THE O2 CONSERVING MODE. HENCE HE HAS TO USE THE REGULAR PORTABLE CYLINDER FOR OUTDOOR USAGE. (4) Lung cancer: Comment: Patient was having screening CT scans at [facility]. Recently he was found to have density in the right upper lobe, Patient tells me that he had a needle biopsy. And now he has been started on treatment with Keytruda , IV every 3 weeks . He is being followed by Dr. Urban Walsh of [facility]. I do not have any report of his recent CT scan, biopsy the chemotherapeutic agent. Code(s): C34.90 - Malignant neoplasm of unspecified part of unspecified bronchus or lung Category: Medical Plan: Patient is encouraged to keep on getting his treatment. Orders: Orders AMB 6 minute walk Today J44.9 - Chronic obstructive pulmonary disease, unspecified Coding Level of Care Code Est Pt Level 3 (03806) Diagnoses Pulmonary emphysema J43.9 COPD (chronic obstructive pulmonary disease) J44.9 Hypoxemia R09.02 Lung cancer C34.90 CPT Codes Coding ([id number])
[2024-04-08 14:25] VITALS: PULSE 73; O2SAT 93
== END 2024-04-08 14:16 | disposition home or self-care (01) ==
PROVIDERS: PCP Internal Medicine; Visit Provider Internal Medicine
DX: J43.9 Emphysema, unspecified (principal); J44.9 Chronic obstructive pulmonary disease, unspecified; R09.02 Hypoxemia; C34.90 Malignant neoplasm of unspecified part of unspecified bronchus or lung
CPT/HCPCS: 94618; 99213

== ENCOUNTER → 2024-04-08 13:39 | Outpatient (BNVA) | payer MEDICARE, SELFPAY | PROVIDERS: PCP Internal Medicine; Visit Provider Internal Medicine | DX: J43.9 Emphysema, unspecified (principal); R09.02 Hypoxemia; C34.90 Malignant neoplasm of unspecified part of unspecified bronchus or lung | CPT/HCPCS: 94618; 99212 ==

== ENCOUNTER 2024-07-08 14:21 | Outpatient (AMB) | payer MEDICARE, SELFPAY ==
[2024-07-08 14:30] VITALS: BP 84/58; PULSE 80; O2SAT 93; BMI 22.6
--- NOTE | 2024-07-08 14:30 | A.OFFVIS_ITS ---
Vital Signs 07/08/24 14:30 Height 5 ft 9 in Weight 153 lb 3.54 oz BMI 22.6 BP 84/58 L Blood Pressure Location Lt brachial Position Sitting Pulse 80 Pulse Source Pulse Oximeter Pulse Oximetry (%) 93 Oxygen Delivery Method Room Air Intake Visit Reasons: COPD Intake Note: pt is here for follow up and states he has not been feeling well since [place], he would like a rolllator to use with portable oxygen, [facility] is dme for oxygen, we can send there. he is not feeling well, coughing, and taking severe cough and flu. Human Development Professor Required: No Allergies zithomax Adverse Reaction (Severe, Uncoded 07/08/24 14:59) Unknown Medication List - Last Reconciled 07/08/24 by Donny Peña MD albuterol sulfate 90 mcg/actuation inhalation allopurinol 300 mg PO DAILY apixaban (Eliquis) 5 mg PO BID diltiazem HCl CD 240 mg PO DAILY fluticasone propion-salmeterol 250-50 mcg/dose 1 inh inhalation Q12H furosemide 20 mg PO DAILY furosemide 40 mg PO DAILY gemfibrozil 600 mg PO BEDTIME latanoprost 0.005% drps ophthalmic (eye) metoprolol tartrate 50 mg PO BID Do you need a note to return to daycare/school/sports/work: No HPI HPI COPD: Details: This 84 years old very pleasant gentleman is here for his routine 6 months follow-up for COPD. He uses Wixela 250-50 1 inhalation b.i.d. and albuterol HFA only once in a while. He is known to have nocturnal and exercise induced hypoxemia. He has stationary concentrator at home and uses O2 2 L/minute at night. He has not been able to use the portable cylinders when he goes outdoors, because of inconvenience. Recently diagnosed to have lung cancer of the right lung, and has been started on chemotherapy. Being followed up by Dr. Urban Walsh at [facility]. He is tolerating the chemotherapy ( kAYTRUDA ) Has had 6 treatments so for , tolerating well except for decreased appetite. He wanted to get POC, but 6 minutes walk test done last time did not qualify him for that. He could not maintain adequate oxygenation with O2 conserving mode. He still finds it difficult for him to carry the portable cylinder, when he has to go to the mailbox, or walk outdoors. [facility] Medical History Lung cancer Hypoxemia Raynauds syndrome COPD (chronic obstructive pulmonary disease) SANTILLAN (dyspnea on exertion) Pulmonary emphysema Social History Patient Tobacco Use Status: Former Tobacco user Review of Systems Const All systems reviewed & are unremarkable except as noted in HPI and below Eyes Reports no additional complaints ENT Reports Normal hearing present and Reports nasal congestion (Mild off and on) Card Denies chest pain, Reports irregular heart rhythm (RATE WELL CONTROLLED) and Denies leg edema Resp Reports as per HPI GI Reports no additional complaints Reports no additional complaints Musc Reports no additional complaints Skin/Breast Reports system reviewed and no additional complaints, except as documented and Reports other (His hands get very cold and bluish when he walks outdoors in cold weather) Neuro Reports no additional complaints and Reports Normal hearing present Psych Reports no additional complaints Physical Exam Vital Signs: Last Vital Signs Pulse 80 07/08/24 14:30 BP 84/58 L 07/08/24 14:30 Pulse Ox 93 07/08/24 14:30 Oxygen Delivery Method Room Air 07/08/24 14:30 BMI result Body Mass Index 22.6 Const General: cooperative, healthy appearing, comfortable, no acute distress, well developed and alert Orientation/consciousness: patient oriented x3 Limitations: no limitations HEENT Head: Yes normal to inspection, Yes normocephalic and Yes atraumatic Ears: hearing grossly normal bilaterally and external ears normal Eyes General: appearance normal, both eyes and all related structures Eyelids: Yes eyelids normal Sclerae: sclerae normal EOM: EOMs intact bilaterally Neck Neck: Yes normal visual inspection and Yes no lymphadenopathy Lymphatic: no lymphadenopathy noted Chest Chest palpation & inspection: normal inspection of the chest, normal palpation of entire chest wall and no tenderness Resp Other: Percussion note hyper-resonant. Breath sounds are. Diminished with prolonged expiratory phase There are no audible wheezes or crepitations . Cardio Jugular venous distension: no JVD Rate: regular rate Rhythm: regular rhythm Heart sounds: no gallops and no murmurs GI Inspection: Yes normal to inspection Palpation (GI): nontender and no masses Back/Spine/Pelvis Cervical Spine: normal cervical lordosis Thoracic/Lumbar Spine: thoracic and lumbar spine normal to inspection Skin Other: warm, dry General skin exam: no rashes or lesions noted Neuro General: patient oriented x3 and gait normal Cranial nerves: Yes Normal hearing present Cognition (Neuro): normal cognition Gait exam (Neuro): Normal gait present Extrem General: Yes normal to inspection, Yes capillary refill normal, Yes no clubbing, cyanosis or edema and Yes no pedal edema Psych Appearance: grossly normal and well kempt Speech and movement: Normal speech and movement present and Clear speech present Affect: normal affect Attitude: cooperative Thought process: Normal thought process present Assessment & Plan Assessment & Plan (1) COPD (chronic obstructive pulmonary disease): Comment: He is a known case of COPD sec to pulmonary emphysema. Currently it is staying stable and he has had no acute exacerbation. Code(s): J44.9 - Chronic obstructive pulmonary disease, unspecified Category: Medical Plan: Continue fluticasone-salmeterol 250-51 inhalation b.i.d. Albuterol HFA 2 puffs Q 6 hours p.r.n. (2) Hypoxemia: Comment: PATIENT HAS EXERCISE INDUCED HYPOXEMIA, WELL . NOCTURNAL HYPOXEMIA He uses O2 2 L/minute when. Sleeping and also p.r.n. during the daytime Has hard time to carry the portable cylinder. As mentioned above he was not qualified to use POC. Code(s): R09.02 - Hypoxemia Category: Medical Plan: I would send prescription for a, Rollator carrier for the cylinder. So that he can roll along the portable cylinder when he goes outdoors. 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 Has been on chemotherapy with Kaytruda IV infusion q. 3 weeks, has gotten 6 or 7 treatment so for. He has tolerated the chemotherapy well. He is being followed by Dr. Urban Walsh of [facility]. Code(s): C34.90 - Malignant neoplasm of unspecified part of unspecified bronchus or lung Category: Medical Plan: Advised to continue the treatment. Coding Level of Care Code Est Pt Level 3 (41075) Diagnoses COPD (chronic obstructive pulmonary disease) J44.9 Hypoxemia R09.02 Lung cancer C34.90
== END 2024-07-08 15:00 | disposition home or self-care (01) ==
PROVIDERS: PCP Internal Medicine; Visit Provider Internal Medicine
DX: J44.9 Chronic obstructive pulmonary disease, unspecified (principal); R09.02 Hypoxemia; C34.90 Malignant neoplasm of unspecified part of unspecified bronchus or lung
CPT/HCPCS: 99213

== ENCOUNTER → 2024-07-08 14:21 | Outpatient (BNVA) | payer MEDICARE, SELFPAY | PROVIDERS: PCP Internal Medicine; Visit Provider Internal Medicine | DX: J44.9 Chronic obstructive pulmonary disease, unspecified (principal); R09.02 Hypoxemia; C34.90 Malignant neoplasm of unspecified part of unspecified bronchus or lung | CPT/HCPCS: 99212 ==

== ENCOUNTER 2024-10-27 09:41 | Outpatient (AMB) | payer MEDICARE, SELFPAY ==
[2024-10-27 09:50] VITALS: BP 122/82; PULSE 94; O2SAT 97; BMI 23.1
--- NOTE | 2024-10-27 09:50 | MHC.OFFVIS ---
Vital Signs 10/27/24 09:50 Height 5 ft 9 in Weight 156 lb 8.451 oz BMI 23.1 BP 122/82 Blood Pressure Location Lt brachial Position Sitting Pulse 94 Pulse Source Pulse Oximeter Pulse Oximetry (%) 97 Oxygen Delivery Method Nasal Cannula Oxygen Flow Rate 2.5 Intake Visit Reasons: copd Intake Note: pt is here for follow up and states he has no energy, that the breathing does make things difficult for ADL, but he gets it done, just takes longer to get done. oxygen all day and night, and he would like some direction on liter flow. Allergies zithomax Adverse Reaction (Severe, Uncoded 10/27/24 10:29) Unknown Medication List - Last Reconciled 10/27/24 by Donny Peña MD albuterol sulfate 90 mcg/actuation inhalation allopurinol 300 mg PO DAILY apixaban (Eliquis) 5 mg PO BID diltiazem HCl CD 240 mg PO DAILY fluticasone propion-salmeterol 250-50 mcg/dose 1 inh inhalation Q12H furosemide 20 mg PO DAILY furosemide 40 mg PO DAILY gemfibrozil 600 mg PO BEDTIME latanoprost 0.005% drps ophthalmic (eye) metoprolol tartrate 50 mg PO BID Do you need a note to return to daycare/school/sports/work: No HPI HPI copd: Details: Giorgi is a very pleasant 84-year-old here today for a six-month follow-up for his COPD and lung CA Patient has been experiencing increasing shortness of breath and fatigue over the last few weeks. Has needed to increase oxygen to 2.5 L with exertion. He has not had any recent hospitalizations or respiratory illnesses Had a CTA of the chest on 10/08/24 which showed irregular opaque opacity in the central aspect of the left upper lobe from 02/11/2024 has resolved and not returned however there is a small to moderate amount of left pleural fluid that has increased in size and there is moderate to large amount of right pleural fluid which is also increased since last CT. Dr. Walsh with [facility] oncology is aware instructed patient follow-up with pulmonology and Cardiology Uses Wixela 250-50 1 inhalation 2 times a day and has not used rescue inhaler at all over the last few months Weight remains stable, patient is currently taking an appetite stimulant which he reports has helped him gain back weight that he had previously lost. Does report increased edema in the bilateral lower extremities, in a currently taking Lasix 20 mg daily [facility] Medical History (Updated 10/27/24 @ 10:42 by Donny Peña MD) Pleural effusion Lung cancer Hypoxemia Raynauds syndrome COPD (chronic obstructive pulmonary disease) SANTILLAN (dyspnea on exertion) Pulmonary emphysema Social History Patient Tobacco Use Status: Former Tobacco user Review of Systems Const All systems reviewed & are unremarkable except as noted in HPI and below Eyes Reports no additional complaints ENT Reports Normal hearing present and Reports nasal congestion (Mild off and on) Card Denies chest pain, Reports irregular heart rhythm (RATE WELL CONTROLLED) and Denies leg edema Resp Reports as per HPI GI Reports no additional complaints Reports no additional complaints Musc Reports no additional complaints Skin/Breast Reports system reviewed and no additional complaints, except as documented and Reports other (His hands get very cold and bluish when he walks outdoors in cold weather) Neuro Reports no additional complaints and Reports Normal hearing present Psych Reports no additional complaints Physical Exam Vital Signs: Last Vital Signs Pulse 94 10/27/24 09:50 Pulse Ox 97 10/27/24 09:50 Oxygen Delivery Method Nasal Cannula 10/27/24 09:50 Oxygen Flow Rate 2.5 10/27/24 09:50 BMI result Body Mass Index 23.1 Neuro Cranial nerves: Yes Normal hearing present Results Reviewed Results Reviewed: CT chest obtained on 10/08/2024 shows irregular opacity in the central aspect of the left upper lobe from 02/11/2024 has resolved and not reoccurred There is a moderate to large amount of right pleural fluid which has increased and there is also a [id number] amount of left pleural fluid which has increased Assessment & Plan Assessment & Plan (1) Lung cancer: Comment: Patient is a known case of NON-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 Has been on chemotherapy with Kaytruda IV infusion q. 3 weeks He has tolerated the chemotherapy well. He is being followed by Dr. Urban Walsh of [facility]. Code(s): C34.90 - Malignant neoplasm of unspecified part of unspecified bronchus or lung Category: Medical Plan: Continue Keytruda IV infusion every 3 weeks Continue to follow-up with Dr. Urban Walsh at [facility] (2) Hypoxemia: Comment: PATIENT HAS EXERCISE INDUCED HYPOXEMIA, WELL . NOCTURNAL HYPOXEMIA He uses O2 2.5 L/minute during the day and at night Code(s): R09.02 - Hypoxemia Category: Medical Plan: Continue use of O2 at 2.5 L/min. May increase oxygen with exertion in as needed for increased shortness of breath goal is to keep O 2 sat above 90 % and (3) COPD (chronic obstructive pulmonary disease): Comment: He is a known case of COPD sec to pulmonary emphysema. Currently it is staying stable and he has had no acute exacerbation. Code(s): J44.9 - Chronic obstructive pulmonary disease, unspecified Category: Medical Plan: Continue use of Wixela 250-50 mcg b.i.d. Continue albuterol sulfate 90 mcg PRN (4) Pleural effusion: Comment: On exam and per CT chest obtained on 10/08/2024 showing bilateral pleural effusions larger on the right side. Most likely cause is is congestive heart failure Code(s): J90 - Pleural effusion, not elsewhere classified Category: Medical Plan: Patient is scheduled to see the undertaker helper and we will defer the decision to treat until seen by Cardiology Coding Level of Care Code Est Pt Level 3 (93198) Diagnoses Lung cancer C34.90 Hypoxemia R09.02 COPD (chronic obstructive pulmonary disease) J44.9 Pleural effusion J90
--- OUTSIDE RECORDS SUMMARY | 2024-10-27 10:29 | XMS_ITS ---
Author Organization [facility] Address [address] [place] [address] Phone Care Team Providers Care Ticket Machine Operator Name Role Phone Chuck Haskins MD Primary Care Provider [phone] Active Problems Problem Noted Date Diagnosed Date Pacemaker end of life 10/22/2024 Primary lung adenocarcinoma, unspecified laterality ([facility] V24, [facility] V28) 02/03/2024 Mitral regurgitation 07/25/2023 Assessment & Plan (07/09/2024 9:38 AM EST): Murmur is not that impressive. With improved volume status, mitral regurgitation probably has improved. Will continue monitor volume status clinically. Acute heart failure with pre served ejection fraction (HFpEF) ([facility] V24, [facility] V28) 06/03/2023 Overview (04/01/2024): EXACERBATION Assessment & Plan (07/09/2024 9:38 AM EST): He appears euvolemic. Giving ongoing cancer treatment and slow weight loss, I will reduce furosemide to 20 mg a daily. COPD with exacerbation ([facility] V24, [facility] V28 ) 06/03/2023 Pleural effusion 06/03/2023 CHF (congestive heart failure) ([facility] V24, [facility] V28) 03/26/2023 Overview (04/01/2024): Last Assessment & Plan: With preserved LVEF. Caused by chronic atrial fibrillation. He has mild lower extremity edema. I suggest him to increase furosemide to 20 mg or twice a week. Shortness of breath 06/13/2021 Overview (04/01/2024): Last Assessment & Plan: Due to combination of COPD and probably A. fib related diastolic heart failure. He is euvolemic. I will reduce furosemide from 40 mg daily to 40mg daily 3 times a week and 20 mg daily 4 times a week Mixed hyperlipidemia 08/30/2020 Overview (04/01/2024): Last Assessment & Plan: Patient's LDL is well controlled. Continue dietary modification and Lopid. Sick sinus syndrome ([facility] V24, [facility] V28) 0 08/30/2020 Overview (04/01/2024): [employer] pacemaker Last Assessment & Plan: Battery life 1.2 years from most recent interrogation. Due for in office interrogation in April. Essential hypertension 03/01/2014 Overview (04/01/2024): Last Assessment & Plan: Patient's blood pressures well controlled on current dose beta-josseline and diltiazem. Continue to follow. Persistent atrial fibrillation ([facility] V24, [facility] V28) 03/02/2013 Overview (04/01/2024): Anticoagulated with apixaban Increased A. fib burden since 2019, now essentially complete A. fib Last Assessment & Plan: Rate controlled on current regimen. Hematuria has resolved. Tolerate eliquis well. Will repeat BMP. Assessment & Plan (07/09/2024 9:38 AM EST): With pacemaker implantation for tachybradycardia syndrome. Overall rate stable. Will continue Eliquis at current dose. Orders: ECG 12 lead Current Oncology Plans Pembrolizumab ( 21-day cycle, 200 mg )* Plan Start Date:03/07/2024 Plan Provider:Urban Walsh MD Linked Problems Primary lung adenocarcinoma, unspecified laterality ([facility] V24, [facility] V28) Treatment Medications Current Day (Day 1 , Cycle 12 - Planned for 11/15/2024) Next Day (Day 1, Cycle 13 - Planned for 12/06/2024) pembrolizumab (KEYTRUDA)pembrolizumab (KEYTRUDA) chemo IVPB (adult) pembrolizumab (KEYTRUDA) 200 mg in sodium chloride 108 mL chemo IVPB pembrolizumab (KEYTRUDA) 200 mg in sodium chloride 108 mL chemo IVPB Past Plans No past plan information found. Radiation Treatments * No radiation treatments are documented for this patient in [facility]. Treatments may have been administered in another system.
--- OUTSIDE RECORDS SUMMARY | 2024-10-27 10:29 | XMS_ITS | Encounter Summary ---
Author Organization [facility] Address [address] [place] [address] Care Team Providers Care Cloth Boil Off Machine Operator Name Role Phone Chuck Haskins MD Primary Care Provider [phone] Reason for Visit * Reason Onset Date Comments Procedure 10/26/2024 Pacemaker Dual B attery Change 6.6.25 Encounter Details Date Type Department Care Team (Late st Contact Info) Description 10/26/2024 Telephone [facility] - [facility] [address] [facility] [address] [place] [address] Keven Stinson MD [address] [place] [address] Procedure (Pacemaker Dual Battery Change 6.6.25) Social History Tobacco Use Types Packs/Day Years Used Date Smoking Tobacco: Former Cigarettes Q uit: 06/30/1980 Smokeless Tobacco: Never Alcohol Use Standard Drinks/Week Comments Not Currently 0 (1 standard drink = 0.6 oz pur e alcohol) Sex and Gender Information Value Date Recorded Sex Assigned at Male 07/12/2024 9:01 AM EST Legal Sex Male 8:56 AM EST Gender Identity Male 07/12/2024 9:01 AM EST Sexual Orientation Straight 07/12/2024 9: 01 AM EST documented as of this encounter Plan of Treatment Upcoming Encounters Date Type Department Care Team (Latest Contact Info) Description 11/12/2024 10:15 AM EDT Office Visit [facility] Hematology Oncology [address] [place] [phone] Urban Walsh MD [address] [place] [phone] 11/15/2024 9:00 AM EDT Appointment [facility] Infusion Center [address] [facility] [address] [place] [phone] 11/30/2024 2:30 PM EDT Office Visit [facility] - [facility] [address] [phone] Lazaro Solis MD [address] [address] 12/03/2024 9:00 AM EDT Hospital Encounter [facility] Cardiac Geographic Information System Surveyor [address] [place] [phone] Keven Stinson MD [address] [phone] Pacemaker end of life 12/03/2024 9:00 AM EDT - 12/03/2024 10:00 AM EDT Surgery [facility] Cardiac Geographic Information System Surveyor [address] [place] [phone] Keven Stinson MD [address] [address] Remove & replace PPM dual chamber generator only [[id number] (CPT??)] documented as of this encounter Visit Diagnoses Not on filedocumented in this encounter Care Teams Cloth Boil Off Machine Operator Relationship Specialty Start Date End Date Chuck Haskins MD [address] PCP - General 01/13/13 documented as of this encounter
--- OUTSIDE RECORDS SUMMARY | 2024-10-27 10:29 | XMS_ITS | Encounter Summary ---
Author Organization [facility] Address [address] [place] [address] Care Team Providers Care Glass Tinter Name Role Phone Chuck Haskins MD Primary Care Provider [phone] Reason for Visit * Reason Comments Chemotherapy C11 keytruda * Episode Based Medications (Routine) - Authorized Specialty Diagnoses / Procedures Referred By Contac t Referred To Contact Diagnoses Primary lung adenocarcinoma, unspecified laterality (CMS/HCC V24, CMS/HCC V28) Urban Walsh MD [address] [place] [phone] Phone: tel: fax: [address] [address] Phone: tel: fax: Referral ID Status Reason Start Date Expiration Date V isits Requested Visits Authorized [id number] Authorized 04/11/2024 04/11/2025 1 22 Encounter Details Date Type Department Care Team (Latest Contact Info) Description 10/25/2024 9:00 AM EDT Hospital Encounter [facility] [address] [place] [phone] Urban Walsh MD [address] [place] [address] Primary lung adenocarcinoma, unspecified laterality ([facility] V24, [facility] V28) (Primary Dx) Social History Tobacco Use Types Packs/Day Years Used Date Smoking Tobacco: Former Cigarettes Q uit: 06/30/1980 Smokeless Tobacco: Never Tobacco Cessation:Counseling Given: Not Answered Alcohol Use Standard Drinks/Week Comments Not Currently 0 (1 standard drink = 0.6 oz pur e alcohol) Sex and Gender Information Value Date Recorded Sex Assigned at Male 07/12/2024 9:01 AM EST Legal Sex Male 8:56 AM EST Gender Identity Male 07/12/2024 9:01 AM EST Sexual Orientation Straight 07/12/2024 9: 01 AM EST documented as of this encounter Last Filed Vital Signs Vital Sign Reading Time Taken Comments Blood Pressure 124/83 10/25/2024 9:13 AM EDT Pulse 83 10/25/2024 9:13 AM EDT Temperature 36.2 ??C (97.1 ??F) 10/25/2024 9:13 AM ED T Respiratory Rate 18 10/25/2024 9:13 AM EDT Oxygen Saturation 100% 10/25/2024 9:13 AM EDT Inhaled Oxygen Concentration - - Weight - - Height - - Body Mass Index - - documented in this encounter Progress Notes * Niecy Varner RN - 10/25/2024 9:00 AM EDT 0933: PT arrives this morning for C11 keytruda. PT reports feeling significant SANTILLAN, uses O2 via NC 2L chronically although PT had recent CT scan showing bilateral pleural effusions. Dr. Walsh is aware of this and believes fluid accumulation is r/t CHF. PT sts his pacemaker is due for battery change and belives he has about 90 days left. PT reports he has a f/u visit with pulmonary this Friday and a cardiology visit this upcoming November. PT sts his diuretic doses are often adjusted to aid in this although this RN encouraged PT and to speak with pulmonary about thoracentesis, as this would provide him more relief. PT and verbalized understanding to all. PT also continues to also h ave generalized bruising r/t eliquis, appetite better with added megace Rx, bilateral legs noted terrie swollen, +1 pitting edema. PT also notes he chronically has blood in urine r/t pmhx of prostate CA, about 2-3 episodes monthly. No active bleeding att. Otherwise stable assessment. PIV inserted, +BR noted, flushed per protocol and fluids initiated at O. PT denies concerns, call clarke in reach. 1020: Keytruda infusion initiated. PT denies concerns, call clarke in reach. 1100: Keytruda infusion completed without concerns. PIV flushed and removed, tip in tact, dressing applied. PT provided with next apt reminders, verbalized understanding, left unit via wheelchair with family, stable at D/C. documented in this encounter Plan of Treatment Upcoming Encounters Date Type Department Care Team (Latest Contact Info) Description 11/12/2024 10:15 AM EDT Office Visit [facility] Hematology Oncology [address] [place] [phone] Urban Walsh MD [address] [place] [address] 11/15/2024 9:00 AM EDT Appointment [facility] Infusion Center [address] [place] [address] 2[address] [place] [phone] 11/30/2024 2:30 PM EDT Office Visit [facility] [address] [phone] Lazaro Solis MD [address] [address] 12/03/2024 9:00 AM EDT Hospital Encounter [facility] Cardiac Button Sewer Hand [address] [place] [phone] Keven Stinson MD [address] [address] Pacemaker end of life 12/03/2024 9:00 AM EDT - 12/03/2024 10:00 AM EDT Surgery [facility] Cardiac Button [facility]er Hand [address] [place] [phone] Keven Stinson MD [address] [facility] [address] [place] [address] Remove & replace PPM dual chamber generator only [85889 (CPT??)] documented as of this encounter Visit Diagnoses Diagnosis Pacemaker end of life- Primary Primary lung adenocarcinoma, unspecified laterality (CMS/HCC V24, CMS/HCC V28)- Primary Pacemaker end of life documented in this encounter Administered Medications Inactive Administered Medications - up to 3 most recent administrations Medication Order MAR Action Action Date Dose Rate Site pembrolizumab (KEYTRUDA) 200 mg in sodium chloride 108 mL chemo IVPB 200 mg, intravenous, at 216 mL/hr, Administer over 30 Minutes, Once, On Fri10/25/24 at 1000, For 1 dose, Administer with a low protein binding 0.2-5 micron in-line filter.Indications:Primary lung adenocarcinoma, unspecified laterality (CMS/HCC V24, CMS/[facility] V28) New Bag 10/25/2024 10:21 AM EDT 200 mg 216 mL/hr documented in this encounter Orders Medications Ordered That Burak ht Not Have Been Administered Count Last Ordered Date First Ordered Date pembrolizumab (KEYTRUDA) 200 mg in sodium chloride 108 mL chemo IVPB 1 10/25/2024 documented in this encounter Care Teams Glass Tinter Relationship Specialty Start Date End Date Chuck Haskins MD [address] [facility] [address] [place], [place] PCP - General 01/13/13 documented as of this encounter
--- OUTSIDE RECORDS SUMMARY | 2024-10-27 10:29 | XMS_ITS | Clinical Summary ---
Author Organization [facility] Address [address] [place] [address] Care Team Providers Care Pipe Processor Name Role Phone Chuck Haskins MD Primary Care Provider [phone] Allergies Active Allergy Reactions Criticality Noted Date Comments Somatropin 12/16/2022 Medications Medication Sig Dispensed Refills Start Date End Date Status allopurinol (ZYLOPRIM) 300 MG tablet Take 1 tablet (300 mg total) by mouth daily. 0 Active dilTIAZem (CARDIZEM CD) 240 MG 24 hr capsule Take 1 capsule (240 mg total) by mouth daily. 0 Active apixaban (ELIQUIS) 5 MG TABS tablet Take 1 tablet (5 mg total) by mouth every 12 (twelve) hours. 0 Active fluticasone (FLONASE) 50 MCG/ACT nasal spray spray/apply 1 spray in each nostril daily. 0 Active gemfibrozil (LOPID) 600 MG tablet Take 1 tablet (600 mg total) by mouth 2 (two) times a day before breakfast and dinner. 0 Active metoprolol tartrate (LOPRESSOR) 50 MG tablet Take 1 tablet (50 mg total) by mouth 2 (two) times a day. 0 Active Albuterol Sulfate, sensor, (ProAir Digihaler) 108 (90 Base) MCG/ACT AEPB Inhale 2 puffs into the lungs every 4 (four) hours as needed. 0 Active furosemide (LASIX) 20 MG tablet Take 1 tablet (20 mg total) by mouth 2 (two) times a day. 20 mg 4x week 40 mg 3 x week 0 Active Fluticasone-Salmetero l (WIXELA INHUB IN) Inhale into the lungs. 0 Active acetaminophen (TYLENOL) 500 MG tablet Take by mouth every 6 (six) hours as needed. 0 Active Multiple Vitamins-Minerals (MULTI COMPLETE PO) Take by mouth. 0 A ctive Holden-3 Fatty Acids (Fish Oil) 1000 MG CAPS Take by mouth. 0 Active Magnesium 400 MG TABS Take by mouth. 0 Active vitamin D3 (cholecalciferol) 25 MCG (1000 UT) tablet Take 1 tablet (25 mcg total) by mouth daily. 0 Active Cetirizine HCl (ZYRTEC ALLERGY PO) Take by mouth. 0 A ctive Active Problems Problem Noted Date Diagnosed Date Primary lung adenocarcinoma, unspecified lateral ity 02/03/2024 Retroperitoneal lymphadenopathy 01/13/2024 Liver lesion 02/28/2021 Family History Medical History Relation Name Comments Leukemia Mother Relation Name Status Comments Father Mother Social History Tobacco Use Types Packs/Day Years Used Date Smoking Tobacco: Former Cigarettes 1 30 Smokeless Tobacco: Never Alcohol Use Standard Drinks/Week Comments Not Currently 0 (1 standard drink = 0.6 oz pur e alcohol) Sex and Gender Information Value Date Recorded Sex Assigned at Not on file Gender Identity Not on file Sexual Orientation Not on file Job Start Date Occupation Industry Not on file Not on file Not on file Last Filed Vital Signs Vital Sign Reading Time Taken Comments Blood Pressure 129/75 04/19/2024 9:54 AM EDT Pulse 84 04/19/2024 9:54 AM EDT Temperature 36.3 ??C (97.4 ??F) 04/19/2024 9:54 AM ED T Respiratory Rate 18 04/19/2024 9:54 AM EDT Oxygen Saturation 98% 04/19/2024 9:54 AM EDT Inhaled Oxygen Concentration - - Weight 69.9 kg (154 lb 3.2 oz) 04/19/2024 9:54 A M EDT Height 177.8 cm (5' 10 ) 04/19/2024 9:54 AM EDT Body Mass Index 22.13 04/19/2024 9:54 AM EDT Plan of Treatment Health Maintenance Due Date Last Done Comments Depression Screening 1952 Preventative Health Evaluation 01/09/1956 DTap / Tdap / Td (1 - Tdap) 1957 Shingrix-Zoster Vaccine (1 o f 2) 1957 Fall Risk Assessment 2003 RSV Adult > 60+ Yrs or (1 - 1-dose 75+ series) 2013 Pneumococcal Vaccine (3 of 3 - PCV) 04/30/2013 04/30/2012, 04/29/2011 COVID-19 Vaccine (2 - Pfizer risk series) 09/18/2020 08/28/2020 Influenza Vaccine (#1) 2024 04/29/2011 Hepatitis B Vaccines Aged Out No long er eligible based on patient's age to complete this topic RSV Ped < 20 months Aged Out No longe r eligible based on patient's age to complete this topic Care Teams Pipe Processor Relationship Specialty Start Date End Date Chuck Haskins MD [address] [address] PCP - General Staff Nurse Anesthetist 02/28/21
--- OUTSIDE RECORDS SUMMARY | 2024-10-27 10:29 | XMS_ITS ---
Author Organization [facility] Address [address] [place] [address] Care Team Providers Care Asw Specialist Name Role Phone Chuck Haskins MD Primary Care Provider [phone] Active Problems Problem Noted Date Diagnosed Date Primary lung adenocarcinoma, unspecified lateral ity 02/03/2024 Retroperitoneal lymphadenopathy 01/13/2024 Liver lesion 02/28/2021 Current Oncology Plans [facility] OP PEMBROLIZUMAB (200 MG)* Plan Start Date:03/07/2024 Plan Provider:Urban Walsh MD Linked Problems Primary lung adenocarcinoma, unspecified laterality (HCC) Treatment Medications Current Day (Day 1 , Cycle 4 - Planned for 05/10/2024) Next Day (Day 1, Cycle 5 - Planned for 05/31/2024) albuterol (PROVENTIL)diphenhydrAMINE (BENADRYL)EPINEPHrinefamoti dine (PF) (PEPCID)hydrocortisone (SOLU-CORTEF) IVpembrolizumab (KEYTRUDA) infusionSaline Flush 0.9 %sodium chloride (NS) 0.9 %sodium chloride 0.9% bolus (NS) albuterol (PROVENTIL) nebulizer solution 2.5 mgdiphenhydrAMINE (BENADRYL) injection 50 mgEPINEPHrine (Anaphylaxis) (ADRENALIN) 1 mg/ml (1:1000) inj amp/vial 0.3 mgfamotidine (PEPCID) 20 mg in water for injection, sterile 5 mL Injectionhydrocortisone sodium succinate (Solu-CORTEF) injection (PF) 100 mgpembrolizumab (KEYTRUDA) 200 mg in sodium chloride (NS) 0.9 % 100 mL infusionSaline Flush 0.9 % injection 1 Syringesodium chloride 0.9% (NS) infusionsodium chloride 0.9% bolus (NS) 500 mL ALBUTEROL SULFATE (2.5 MG/3ML) 0.083% IN NEBUDIPHENHYDRAMINE HCL 50 MG/ML IJ SOLNEPINEPHRINE 1 MG/ML INJECTION ORDERABLE (BCN PRLS)FAMOTIDINE (PF) 20 MG/2ML IV SOLNHYDROCORTISONE IV ORDERABLEpembrolizumab (KEYTRUDA) 200 mg in sodium chloride (NS) 0.9 % 100 mL infusionSALINE FLUSH 0.9 % IV SOLNSODIUM CHLORIDE 0.9 % IV BOLUSSODIUM CHLORIDE 0.9 % IV SOLN Past Plans No past plan information found. Radiation Treatments * No radiation treatments are documented for this patient in [facility]. Treatments may have been administered in another system.
--- OUTSIDE RECORDS SUMMARY | 2024-10-27 10:29 | XMS_ITS | Encounter Summary ---
Author Organization [facility] Address [address] [place] [address] Care Team Providers Care Clam Sorter Name Role Phone Chuck Haskins MD Primary Care Provider [phone] Reason for Visit * Reason Comments Follow-up Encounter Details Date Type Department Care Team (Late st Contact Info) Description 10/22/2024 10:15 AM EDT Office Visit [facility] Hematology Oncology [address] [place] [address] Urban Walsh MD [address] [place] [address] Primary lung adenocarcinoma, unspecified laterality ([facility]/H[facility] V24, [facility]/HCC V28) (Primary Dx) Social History Tobacco Use [...] Sign Reading Time Taken Comments Blood Pressure 114/64 10/22/2024 10:20 AM EDT Pulse 84 10/22/2024 10:20 AM EDT Temperature 36.7 ??C (98 ??F) 10/22/2024 10:20 AM EDT Respiratory Rate - - Oxygen Saturation 100% 10/22/2024 10:20 AM EDT Inhaled Oxygen Concentration - - Weight 70.3 kg (155 lb) 10/22/2024 10:20 AM EDT Height - - Body Mass Index 22.19 10/01/2024 10:39 AM EDT documented in this encounter Progress Notes * Urban Walsh MD - 10/22/2024 10:15 AM EDT Diagnosis/treatment: Metastatic lung adenocarcinoma with retroperitoneal lymphadenopathy, TMB-high, diagnosed in 12/2023.He started Keytruda on 03/08/2024. Interval history: The patient is an 84-year-old formerly smoking gentleman who reported fatigue, mild anorexia, and a10 pound weight loss from the fall 2021 to presentation in 01/2021. He developed gross hematuria in mid-01/2021 which prompted an A/P CT with IV contrast and without oral contrast on 02/09/2021 which revealed innumerable hypoattenuating liver lesions, measuring up to 2.9 cm. There were multiple ill-defined hyperenhancing liver lesions up to 1.5 cm, suggestive of hamartomas. He has a history of sick sinus syndrome and underwent a [employer] pacemaker placement in 2014. He is unable to have MRIs. Eliquis was held x5 days and hematuria resolved. A cystoscopy was reportedly unremarkable. He successfully restarted Eliquis and has had no further hematuria. A chest CT with IV contrast on 03/08/2021 showed COPD and was otherwise unremarkable. A liver ultrasound on 03/20/2021 showed heterogeneous hepatic parenchyma and scattered cysts, but noclearly defined solid mass. An A/P CT with IV and oral contrast on 06/11/2021 showed stable findings. An A/P CT with IV and oral contrast on 12/10/2021 showed stable findings. An A/P CT with IV and oral contrast on 12/12/2022 showed stable findings. He developed gross hematuria in early 08/2023, which persists on an intermittent basis. 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 A chest CT with IV contrast on 09/15/2023 showed a 1.7 cm superior pericaval node and a 1.8 cm rightpericaval node just inferior to the level of the right renal artery. An A/P CT with IV contrast and without oral contrast on 09/04/2023 showed a 1.8 cm pericaval node, a 1.3 cm left para-aortic node, a 1.9 cm retrocaval node, and a 1.2 cm right retrocrural node. There were stable liver findings. An A/P CT with IV contrast and without oral contrast on 01/06/2024 showed an enlarging 2.0 cm retrocaval node and an enlarging borderline size left periaortic node. There were stable liver findings. He underwent a percutaneous core biopsy of a right retroperitoneal lymph node on 01/21/2024 and the pathology showed a metastatic carcinoma, compatible with a lung adenocarcinoma, GAK-6-fnswsplr positive, CK7-strongly positive, CK20- negative, NKX3.1-negative, Napsin A-positive, synaptophysin-negative (weak, patchy staining). A flow cytometry study showed no monoclonal B-cell population. A Caris assay showed TMB-high (40 mut/MB), RODERICK, PD-L1 TPS 0. ALK, EGFR, KRAS, MET, RET, ROS-1 alterations werenot detected. A KEAP1 exon 3 p.P278L mutation was detected. A PIK3CA exon 10 p.E545K mutation was detected. An STK11 exon 5 p.E223fs mutation was detected. TP53 exon 4 p.W53 mutation was detected. The tumor had a probability of 99% to be a lung adenocarcinoma. A chest CT without contrast on 02/11/2024 showed a new 1.1 cm left upper lobe irregular nodule and more prominent mediastinal nodes measuring up to 1.1 cm in the subcarinal region.. He developed right lower back pain in early 01/2024. He took Tylenol Extra Strength 2 pills, 3 timesdaily with relief. He denies fevers, chills, or sweats. His appetite and weight subsequently stabilized following presentation. He reports recurrent anorexia since early 2023. He lost weight from 160 pounds on 10/14/2023 down to 153 pounds on 01/13/2024. His weight subsequently stabilized. He is followed by our Nutritio nist. He has started dietary supplements, 1 bottle per day. He lost weight from 152 pounds on 05/31/2024 down to 146 pounds on 06/18/2024. He is tolerating Keytruda reasonably well. He reports mild fatigue. He reports mild dry skin, a mild rash, and mild pruritus on his trunk and extremities. He applies CeraVe cream with partial relief.I prescribed betamethasone cream and the rash and pruritus have lessened. LFTs on 07/30/2024 showed a total bilirubin 1.4, AST 398, ALT 264, and alkaline phosphatase 101. We delayed Keytruda x 3 weeks. LFTs on 08/19/2024 showed a total bilirubin 1.0, AST 35, ALT 44, and alkaline phosphatase 103. LFTs on 09/09/2024 showed a total bilirubin 0.8, AST 95, ALT 62, and alkaline phosphatase 113. We proceeded with Keytruda without delay. LFTs on 09/30/2024 showed total bilirubin 1.0, AST 45, ALT 33, and alkaline phosphatase 93. Proceededwith Keytruda without delay. Subsequent transaminases have remained in the normal range. The right lower back pain lessened has and has become occasional. A C/A/P CT with IV contrast and without oral contrast on 07/14/2024 showed a stable 3.6 cm right retroperitoneal mass, a decreasing 1.8 cm right retroperitoneal nodule, and a slightly enlarging 1.6 cmleft para-aortic node. A C/A/P CT with IV contrast and without oral contrast on 05/19/2025 showed stable disease. There were increasing bilateral pleural effusions. He reports persistent anorexia. I prescribed Megace. His weight was stable over the last interval. He denies nausea, abdominal pain, constipation, diarrhea, melena, or hematochezia. He has a history of COPD and reports chronic moderate dyspnea on exertion. He was prescribed O2 therapy. He reports increased dyspnea on exertion since early 09/2024. He denies cough or hemoptysis. He denies headaches or visual changes. He denies unusual bone pain. He has a history of prostate cancer diagnosed in 2009. He underwent external beam radiation. A PSA has remained low. His last PSA was 0.2 in the fall 2019. A PSA on 09/29/2023 was 0.4. He has a history of colonic polyps. He underwent a colonoscopy in [address] Echavarria to evaluate hematochezia which reportedly showed a bleeding benign colonic lesion. He started smoking at age 13 and smoked a pack a day and quit at age 43. Past medical history: Sick sinus syndrome, S/P [employer] pacemaker placement, atrial fibrillation, hypertension, COPD, gout, hyperlipidemia, prostate cancer. Current medications: Allopurinol, colchicine, diltiazem, Eliquis, Flonase, gemfibrozil, metoprolol, ProAir. Allergies: No known drug allergies. Family history: His mother was diagnosed with leukemia and in her 30s from that cancer. His father had no history of cancer. He has 2 brothers and 1 sister with no history of cancer. He has 2 sons and 1 daughter with no history of cancer. 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 He is . He has 2 sons and 1 daughter. He has 1 grandchild. He started smoking at age 13 and smoked a pack a day and quit at age 43. Hedrinks alcohol, 2-3 drinks per day. Review of systems: The remainder of a 10 point review of systems was unremarkable. Physical examination: HEENT: Sclerae anicteric, normal oropharyngeal membrane. Neck: No lymphadenopathy. Lungs: Clear to auscultation. Heart: No murmurs. Abdomen: Soft, nontender, no organomegaly or masses. Extremities: No edema. Skin: Rash on trunk and extremities, lessened on betamethasone cream Neurologic: Normal gait. Assessment/plan: The patient is an 84-year-old gentleman who presented in 01/2021 with innumerable hypoattenuating liver lesions measuring up to 2.9 cm seen on A/P CT with IV contrast in mid-01/2021. A chest CT in early 02/2021 was unremarkable. He has a pacemaker and cannot have an MRI study. A liver ultrasound showed no clearly defined solid mass to be biopsied. An A/P CT in mid-05/2021 showed stable findings. An A/P CT in mid-11/2021 showed stable findings. An A/P CT in mid- 11/2022 showed stable findings. He developed gross hematuria in early 08/2023, which persists on an intermittent basis. 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 A chest CT with IV contrast on 09/15/2023 showed a 1.7 cm superior pericaval node and a 1.8 cm rightpericaval node just inferior to the level of the right renal artery. An A/P CT with IV contrast and without oral contrast on 09/04/2023 showed a 1.8 cm pericaval node, a 1.3 cm left para-aortic node, a 1.9 cm retrocaval node, and a 1.2 cm right retrocrural node. An A/P CT with IV contrast and without oral contrast on 01/06/2024 showed an enlarging 2.0 cm retrocaval node and an enlarging borderline size left periaortic node. A percutaneous core biopsy of one of the retroperitoneal nodes in late 12/2023 showed a metastatic lung adenocarcinoma, TMB-high, PD-L1 TPS 0, RODERICK. No actionable mutations were found. We will start Keytruda. I discussed potential adverse effects, including fatigue, nausea, diarrhea,arthralgias, rash, pruritus, and autoimmune events, including hypothyroidism, diabetes, adrenal insufficiency, pneumonitis, hepatitis, colitis. He developed right lower back pain in early 01/2024, likely tumor pain from the retroperitoneal lymphadenopathy. He took Tylenol Extra Strength 2 pills, 3 times daily with relief. He is tolerating Keytruda reasonably well. He reports mild fatigue. He reports mild dry skin, a mild rash, and mild pruritus on his trunk and extremities. He applies CeraVe cream with partial relief.I prescribed betamethasone cream and the rash and pruritus have lessened. He developed a transaminitis on 07/30/2024. We delayed Keytruda x 3 weeks and the transaminases normalized. He developed a mild transaminitis on 09/09/2024. We proceeded with Keytruda without delay. LFTs on 09/30/2024 showed total bilirubin 1.0, AST 45, ALT 33, and alkaline phosphatase 93. We proceeded with Keytruda without delay. Subsequent transaminases have remained in the normal range. The right lower back pain lessened has and has become occasional. A C/A/P CT with IV contrast and without oral contrast on 07/14/2024 showed mostly stable disease. A C/A/P CT with IV contrast and without oral contrast on 10/08/2024 showed stable disease. He reports increased dyspnea on exertion since early 09/2024. The 10/08/2024 CT showed increasing bilateral pleural effusions, suggestive of worsened congestive heart failure. I instructed him to contact his Grain Operator and Dielectric Embossing Machine Operator. He has had anorexia and weight loss since presentation. He is followed by our Retail Aide. He has started dietary supplements, 1 bottle per day. His weight stabilized. I instructed him to increase the supplements to 2 bottles per day. We will monitor his weight. His weight was stable over the lastinterval. Due to the persistent anorexia, we will start Megace. He has a history of an early stage prostate cancer. A PSA on 09/29/2023 was 0.4. Visit summary: The patient is an 84-year-old gentleman who presented in 12/2023 with a metastatic lung adenocarcinoma, TMB-high. He is tolerating Keytruda reasonably well despite a pruritic rash controlled with betamethasone intermittent transaminitis. We delay Keytruda by 3 weeks for transaminitis. We restarted the Keytruda and the transaminases have remained in the normal range. Restaging CTs in 09/2024 showed stable disease. We will continue the Keytruda. He reports increased dyspnea on exertion since early 09/2024. The 09/2024 CT showed increasing bilateral pleural effusions, suggestive of worsened congestive heart failure. I instructed him to contact his Grain Operator and Dielectric Embossing Machine Operator. This encounter is of high risk. The patient has metastatic lung cancer, which is a life-threateningcondition. He remains on Keytruda, which carries a risk of significant morbidity and mortality. documented in this encounter Plan of Treatment Upcoming Encounters Date Type Department Care Team (Latest Contact Info) Description 11/12/2024 10:15 AM EDT Office Visit [facility] Hematology Oncology [address] [place] [phone] Urban Walsh MD [address] [place] [phone] 11/15/2024 9:00 AM EDT Appointment [facility] 271 [facility] [address] [place] [address] 11/30/2024 2:30 PM EDT Office Visit [facility] - [facility] [address] [phone] Lazaro Solis MD 300 [facility] [address] [place] [address] 12/03/2024 9:00 AM EDT Hospital Encounter [facility] Cardiac Processing Rep [address] [place] [phone] Keven Stinson MD [address] [address] Pacemaker end of life 12/03/2024 9:00 AM EDT - 12/03/2024 10:00 AM EDT Surgery [facility] Cardiac Processing [facility] [address] [place] [phone] Keven Stinson MD [address] [address] Remove & replace PPM dual chamber generator only [72293 (CPT??)] documented as of this encounter Visit Diagnoses Diagnosis Primary lung adenocarcinoma, unspecified laterality ([facility] V24, [facility] V28)- Primary Pacemaker end of life- Primary Pacemaker end of life documented in this encounter Historical Medications * This list may reflect changes made after this encounter. latanoprost (XALATAN) 0.005 % ophthalmic solution Administer into both eyes. 09/21/2024 added in this encounter Care Teams Clam Sorter Relationship Specialty Start Date End Date Chuck Haskins MD [address] PCP - General 01/13/13 documented as of this encounter
--- OUTSIDE RECORDS SUMMARY | 2024-10-27 10:29 | XMS_ITS | Encounter Summary ---
Author Organization [facility] Address [address] [place] [address] Care Team Providers Care Fiberglass Finisher Name Role Phone Chuck Haskins MD Primary Care Provider [phone] Encounter Details Date Type Department Care Team (Late st Contact Info) Description 10/22/2024 Telephone [facility] - [facility] [address] [place] [address] Alejandrina Rome NP [address] [place] [address] Social History Tobacco Use Types Packs/Day Years [...] AM EST documented as of this encounter Progress Notes * Alejandrina Rome NP - 10/22/2024 3:36 PM EDT Device reached HUGO October 18, 2024 Patient is scheduled to see Dr. Solis November 30, 2024, Dr. Solis may we amend your office note for history and physical in anticipation of pulse generator change. Yung please schedule patient for pulse generator change with Dr. Stinson toward the mid or endonovember please - prep for procedure entered MURJ notes that patient is not pacemaker dependent documented in this encounter Plan of Treatment Upcoming Encounters Date Type Department Care Team (Latest Contact Info) Description 11/12/2024 10:15 AM EDT Office Visit [facility] Hematology Oncology [address] [place] [phone] Urban Walsh MD [address] [place] [address] 11/15/2024 9:00 AM EDT Appointment [facility] Infusion Center [address] [place] [phone] 11/30/2024 2:30 PM EDT Office Visit [facility] - [address] [phone] Lazaro Solis MD [address] [address] 12/03/2024 9:00 AM EDT Hospital Encounter [facility] Cardiac Broadcast News Producer [address] [place] [phone] Keven Stinson MD [address] [address] Pacemaker end of life 12/03/2024 9:00 AM EDT - 12/03/2024 10:00 AM EDT Surgery [facility] Cardiac Broadcast News Producer [address] [place] [phone] Keven Stinson MD [address] [address] Remove & replace PPM dual chamber generator only [[address]65 (CPT??)] documented as of this encounter Visit Diagnoses Not on filedocumented in this encounter Care Teams Fiberglass Finisher Relationship Specialty Start Date End Date Chuck Haskins MD 300 [address] [facility] [address] [place], [place] PCP - General 01/13/13 documented as of this encounter
--- OUTSIDE RECORDS SUMMARY | 2024-10-27 10:29 | XMS_ITS | Clinical Summary ---
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 Activ e apixaban (ELIQUIS) 5 mg tablet Take 1 tablet (5 mg total) by mouth 2 (two) times a day. Active allopurinoL (ZYLOPRIM) 300 mg tablet Take 1 tablet (300 mg total) by mouth 1 (one) time each day. 0 Active acetaminophen (TYLENOL) 500 mg tablet Take by mouth every 6 hours as needed. Active metoprolol tartrate (LOPRESSOR) 50 mg tablet Take 1 tablet (50 mg total) by mouth 2 (two) times a day. 5 Active magnesium oxide 400 mg magnesium capsule Take 400 mg by mouth 1 (one) time each day. Active multivitamin tablet Take 1 tablet by mouth. Active Oxygen Therapy (O2) gas Inhale by mouth continuously. Inhale into lungs as needed with exertion and at bedtime Active fluticasone-ottoniel meterol (ADVAIR DISKUS) 250-50 mcg/dose diskus inhaler Inhale 1 puff by mouth every 12 (twelve) hours. Rinse mouth with water after use to reduce aftertaste and incidence of candidiasis. Do not swallow. Active dilTIAZem CD (CARDIZEM CD) 240 mg 24 hr capsule TAKE 1 CAPSULE BY MOUTH EVERY DAY 90 capsule 3 5 Active betamethasone valerate (VALISONE) 0.1 % cream Apply topically 2 (two) times a day. 30 g 3 5 07/12/19 26 Active furosemide (LASIX) 20 mg tablet Take 1 tablet (20 mg total) by mouth 1 (one) time each day. 90 tablet 2 5 Active megestroL (MEGACE) 400 mg/10 mL (40 mg/mL) suspension Take 20 mL (800 mg total) by mouth 1 (one) time each day. Shake well just before you measure a dose. Measure with a special dose-measuring spoon or medicine cup, not with a regular table spoon. If you do not have a dose-measuring device, ask your pharmacist for one. 480 mL 3 5 Active latanoprost (XALATAN) 0.005 % ophthalmic solution Administer into both eyes. 5 Active Active Problems Problem Noted Date Diagnosed Date Pacemaker end of life 10/22/2024 Primary lung adenocarcinoma, unspecified laterality ([facility] V24, [facility] V28) 02/03/2024 Mitral regurgitation 07/25/2023 Assessment & Plan (07/09/2024 9:38 AM EST): Murmur is not that impressive. With improved volume status, mitral regurgitation probably has improved. Will continue monitor volume status clinically. Acute heart failure with pre served ejection fraction (HFpEF) ([facility] V24, [facility] V28) 06/03/2023 Overview (04/01/2024): EXACERBATION Assessment & Plan (07/09/2024 9:38 AM EST): He appears euvolemic. Giving ongoing cancer treatment and slow weight loss, I will reduce furosemide to 20 mg a daily. COPD with exacerbation ([facility] V24, [facility] V28 ) 06/03/2023 Pleural effusion 06/03/2023 CHF (congestive heart failure) ([facility] V24, [facility] [...] dietary modification and Lopid. Sick sinus syndrome ([facility] V24, [facility] V28) 0 08/30/2020 Overview (04/01/2024): [employer] pacemaker Last Assessment & Plan: Battery life 1.2 years from most recent interrogation. Due for in office interrogation in April. Essential hypertension 03/01/2014 Overview (04/01/2024): Last Assessment & Plan: Patient's blood pressures well controlled on current dose beta-josseline and diltiazem. Continue to follow. Persistent atrial fibrillation ([facility] V24, [facility] [...] at current dose. Orders: ECG 12 lead Encounters Date Type Department Care Team Description 10/26/2024 Telephone [facility] - [address] [place] [address] Lazaro Solis MD Medication (Lung Fluid) 10/26/2024 Telephone [facility] - [address] [place] [address] Keven Stinson MD Procedure (Pacemaker Dual Battery Change 6.6.25) 10/25/2024 9:00 AM EDT Hospital Encounter [address] [phone] Urban Walsh MD Primary lung adenocarcinoma, unspecified laterality (CMS/HCC V24, CMS/HCC V28) (Primary Dx) 10/22/2024 3:50 PM EDT Ancillary Procedure [facility] - [address] [place] [address] 10/22/2024 10:15 AM EDT Office Visit [facility] [address] [place] [address] Urban Walsh MD Primary lung adenocarcinoma, unspecified laterality (CMS/HCC V24, CMS/HCC V28) (Primary Dx) 10/22/2024 Telephone [facility] - [address] [place] [address] Alejandrina Rome NP 10/08/2024 1:16 PM EDT - 10/08/2024 11:59 PM EDT Hospital Encounter [facility] CT Scan [address] [place] [phone] Primary lung adenocarcinoma, unspecified laterality (CMS/HCC V24, CMS/HCC V28) Discharge Disposition: Home or Self Care 10/04/2024 8:57 AM EDT - 10/04/2024 11:59 PM EDT Hospital Encounter [address] [phone] Urban Walsh MD Primary lung adenocarcinoma, unspecified laterality (CMS/HCC V24, CMS/HCC V28) (Primary Dx) Discharge Disposition: Home or Self Care 10/04/2024 Telephone [facility] [address] [place] [phone] [address] [place] [address] CAP appt 10/02/2024 12:50 AM EDT Ancillary Procedure [facility] - [address] [place] [address] 10/01/2024 10:30 AM EDT Office Visit [facility] [address] [place] [phone] Urban Walsh MD Primary lung adenocarcinoma, unspecified laterality (CMS/HCC V24, CMS/HCC V28) (Primary Dx) 09/13/2024 4:20 PM EDT Ancillary Procedure [facility] - [address] [facility] [address] [place] [phone] 09/13/2024 8:58 AM EDT - 09/13/2024 11:59 PM EDT Hospital Encounter [facility] [address] [place] [address] [address] [place] [address] Urban Walsh MD Primary lung adenocarcinoma, unspecified laterality (CMS/HCC V24, CMS/HCC V28) (Primary Dx) Discharge Disposition: Home or Self Care 09/10/2024 10:45 AM EDT Office Visit [facility] [address] [place] [phone] Urban Walsh MD Primary lung adenocarcinoma, unspecified laterality (CMS/HCC V24, CMS/HCC V28) (Primary Dx) 08/30/2024 9:35 AM EST Ancillary Procedure [facility] - [address] [place] [address] 08/30/2024 Telephone [facility] - [address] [place] [address] Kori Acosta MA lab work (See note) 08/27/2024 Telephone [facility] - [address] [place] [address] Kori Acosta MA Medication Problem (See note) 08/27/2024 Telephone [facility] - [address] [place] [address] Kori Acosta MA 08/27/2024 Telephone [facility] - [address] [place] [address] Lazaro Solis MD 08/23/2024 9:00 AM EST - 08/23/2024 11:59 PM EST Hospital Encounter [facility] [address] [facility] [address] [place] [phone] Urban Walsh MD Primary lung adenocarcinoma, unspecified laterality (CMS/HCC V24, CMS/HCC V28) (Primary Dx) Discharge Disposition: Home or Self Care 08/20/2024 11:15 AM EST Office Visit [facility] [address] [place] [phone] Urban Walsh MD Primary lung adenocarcinoma, unspecified laterality (CMS/HCC V24, CMS/HCC V28) (Primary Dx) from Last 3 Months Surgical History Surgery Date Site/Laterality Comments ATRIAL CARDIAC PACEMAKER INSERTION PROCEDURE:ATRIAL CARDIAC PACEMAKER INSERTION HERNIA REPAIR PROCEDURE:HERNIA REPAIR CATARACT EXTRACTION, BILATERAL PROCEDURE:CATARACT EXTRACTION, BILATERAL COLONOSCOPY PROCEDURE:COLONOSCOPY Medical History Medical History Date Comments Hypoxia DX:Hypoxia Anemia DX:Anemia Atrial fibrillation (CMS/HCC V24, CMS/HCC V28) DX:Atrial fibrillation (HCC) COPD (chronic obstructive pu lmonary disease) with emphysema (CMS/HCC V24, CMS/HCC V28) DX:COPD (chronic obstructive pulmonary disease) with emphysema (HCC) Gout DX:Gout Hyperlipidemia DX:Hyperlipidemi a Hypertension DX:Hypertension Malignant neoplasm of prosta te (CMS/HCC V24, CMS/HCC V28) DX:Malignant neoplasm of [place] (HCC) Sick sinus syndrome (CMS/HCC V24, CMS/HCC V28) DX:Sick sinus syndrome (HCC) Pacemaker DX:Pacemaker Family History Medical History Relation Name Comments [...] Orientation Straight 07/12/2024 9: 01 AM EST Obstetrics History Last Filed Vital Signs Vital Sign Reading Time Taken Comments Blood Pressure 124/83 10/25/2024 9:13 AM EDT Pulse 83 10/25/2024 9:13 AM EDT Temperature 36.2 ??C (97.1 ??F) 10/25/2024 9:13 AM ED T Respiratory Rate 18 10/25/2024 9:13 AM EDT Oxygen Saturation 100% 10/25/2024 9:13 AM EDT Inhaled Oxygen Concentration - - Weight 70.3 kg (155 lb) 10/22/2024 10:20 AM EDT Height 178 cm (5' 10.08 ) 10/01/2024 10:39 AM ED T Body Mass Index 22.19 10/01/2024 10:39 AM EDT Plan of Treatment Upcoming Encounters Date Type Department Care Team (Latest Contact Info) Description 11/12/2024 10:15 AM EDT Office Visit [facility] [address] [place] [phone] Urban Walsh MD [address] [place] [phone] 11/15/2024 9:00 AM EDT Appointment [facility] [address] [phone] 11/30/2024 2:30 PM EDT Office Visit [facility] - [address] [place] [phone] Lazaro Solis MD [address] [address] 12/03/2024 9:00 AM EDT Hospital Encounter [facility] [address] [place] [phone] Keven Stinson MD [address] [address] Pacemaker end of life 12/03/2024 9:00 AM EDT - 12/03/2024 10:00 AM EDT Surgery [facility] [address] [place] [phone] Keven Stinson MD [address] [address] Remove & replace PPM dual chamber generator only [[id number] (CPT??)] Health Maintenance Due Date Last Done Comments DTaP,Tdap,and Td Vaccines (1 - Tdap) 1959 Hepatitis A Vaccines (1 of 2 - Risk 2-dose series) 1959 Hepatitis B Vaccines (1 of 3 - Risk 3-dose series) 1998 Pneumococcal Vaccine: 50+ Years (3 of 3 - PCV) 04/30/2013 04/30/2012, 04/30/2012, 04/29/2011 Zoster Vaccines (2 of 2) 08/21/2020 06/26/2020 Depression Screening 06/08/2022 Social Influencers of Health Screening 06/08/2022 Medicare Annual Wellness Visit 05/15/2023 05/15/2022 COVID-19 Vaccine (8 - Pfizer risk 2023- season) 2024 03/18/2024, 03/28/2023, 03/10/2022, Additional history exists Hypertension/CHF/CAD Annual BMP Blood Test 10/21/2025 10/21/2024, 09/30/2024, 09/09/2024, Additional history exists Falls Risk Assessment 10/25/2025 10/25/2024 Cholesterol Screening (Lipid Panel) 06/18/2029 06/18/2024 RSV Immunization Adult Patients Completed 06/18/2023 Influenza Vaccine Completed 03/18/2024, , 03/10/2022, Additional history exists HIB Vaccines Aged Out No longer eligi ble based on patient's age to complete this topic HPV Vaccines Aged Out No longer eligi ble based on patient's age to complete this topic IPV Vaccines Aged Out No longer eligi ble based on patient's age to complete this topic MMR Vaccines Aged Out No longer eligi ble based on patient's age to complete this topic Meningococcal ACWY Vaccine Aged Out N o longer eligible based on patient's age to complete this topic Meningococcal B Vaccine Aged Out No l onger eligible based on patient's age to complete this topic RSV Immunization Patients Under 20 months Aged Out No longer eligible based on patient's age to complete this topic Varicella Vaccines Aged Out No longer eligible based on patient's age to complete this topic Medical Devices Implanted Type Area Rod Tape Operator Device Identifier Shelf Expiration Date Model / Serial / Lot Pcmkr Assurity - Rf Cardiac Pacemaker Left: Chest [facility] [employer] [id number] / [id number] / Brooks 2240 Assurity(Tm) [id number] Implanted:09/2013 (Quantity not on file) Cardiac Pacemaker [facility] 2240 ASSURITY(TM ) / [id number] / Brooks Assjennifer Gaspar [id number] Implanted:09/2013 (Quantity not on file) Cardiac Pacemaker [facility] ASSURITY DR James / [id number] / Procedures Procedure Name Priority Date/Time Associated Diagnosis Comments CARDIAC DEVICE CHECK- REMOTE- MURJ Routine 10/22/2024 3:48 PM EDT CBC WITH AUTO DIFFERENTIAL Routine 10/21/2024 10:41 AM EDT Lung cancer (CMS/HCC V24, CMS/HCC V28) Drug therapy THYROID STIMULATING HORMONE Routine 10/21/2024 10:41 AM EDT Lung cancer (CMS/HCC V24, CMS/HCC V28) Drug therapy CBC AND DIFFERENTIAL Routine 10/21/2024 10:41 AM EDT Lung cancer (CMS/HCC V24, CMS/HCC V28) Drug therapy COMPREHENSIVE METABOLIC PANEL Routine 10/21/2024 10:41 AM EDT Lung cancer (CMS/HCC V24, CMS/HCC V28) Drug therapy CT CHEST/ABDOMEN/PELVIS W CONTRAST Routine 10/08/2024 1:48 PM EDT Primary lung adenocarcinoma, unspecified laterality (CMS/HCC V24, CMS/HCC V28) CARDIAC DEVICE CHECK- REMOTE- MURJ Routine 10/02/2024 12:45 AM EDT CBC WITH AUTO DIFFERENTIAL Routine 09/30/2024 9:59 AM EDT Lung cancer (CMS/HCC V24, CMS/HCC V28) Drug therapy THYROID STIMULATING HORMONE Routine 09/30/2024 9:59 AM EDT Lung cancer (CMS/HCC V24, CMS/HCC V28) Drug therapy CBC AND DIFFERENTIAL Routine 09/30/2024 9:59 AM EDT Lung cancer (CMS/HCC V24, CMS/HCC V28) Drug therapy COMPREHENSIVE METABOLIC PANEL Routine 09/30/2024 9:59 AM EDT Lung cancer (CMS/HCC V24, CMS/HCC V28) Drug therapy CARDIAC DEVICE CHECK- REMOTE- MURJ Routine 09/13/2024 4:18 PM EDT CBC WITH AUTO DIFFERENTIAL Routine 09/09/2024 10:08 AM EDT Lung cancer (CMS/HCC V24, CMS/HCC V28) Drug therapy THYROID STIMULATING HORMONE Routine 09/09/2024 10:08 AM EDT Lung cancer (CMS/HCC V24, CMS/HCC V28) Drug therapy CBC AND DIFFERENTIAL Routine 09/09/2024 10:08 AM EDT Lung cancer (CMS/HCC V24, CMS/HCC V28) Drug therapy COMPREHENSIVE METABOLIC PANEL Routine 09/09/2024 10:08 AM EDT Lung cancer (CMS/HCC V24, CMS/HCC V28) Drug therapy CBC WITH AUTO DIFFERENTIAL Routine 08/31/2024 8:52 AM EST Lung cancer (CMS/HCC V24, CMS/HCC V28) Drug therapy MAGNESIUM Routine 08/31/2024 8:52 AM EST 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 (CMS/HCC V24) THYROID STIMULATING HORMONE Routine 08/31/2024 8:52 AM EST Lung cancer (CMS/HCC V24, CMS/HCC V28) Drug therapy CBC AND DIFFERENTIAL Routine 08/31/2024 8:52 AM EST Lung cancer (CMS/HCC V24, CMS/HCC V28) Drug therapy COMPREHENSIVE METABOLIC PANEL Routine 08/31/2024 8:52 AM EST Lung cancer (CMS/HCC V24, CMS/HCC V28) Drug therapy CARDIAC DEVICE CHECK- REMOTE- MURJ Routine 08/30/2024 9:30 AM EST CBC WITH AUTO DIFFERENTIAL Routine 08/19/2024 10:34 AM EST Lung cancer (CMS/HCC V24, CMS/HCC V28) Drug therapy THYROID STIMULATING HORMONE Routine 08/19/2024 10:34 AM EST Lung cancer (CMS/HCC V24, CMS/HCC V28) Drug therapy CBC AND DIFFERENTIAL Routine 08/19/2024 10:34 AM EST Lung cancer (CMS/HCC V24, CMS/HCC V28) Drug therapy COMPREHENSIVE METABOLIC PANEL Routine 08/19/2024 10:34 AM EST Lung cancer (CMS/HCC V24, CMS/HCC V28) Drug therapy CBC WITH AUTO DIFFERENTIAL Routine 07/30/2024 10:08 AM EST Lung cancer (CMS/HCC V24, CMS/HCC V28) Drug therapy THYROID STIMULATING HORMONE Routine 07/30/2024 10:08 AM EST Lung cancer (CMS/HCC V24, CMS/HCC V28) Drug therapy CBC AND DIFFERENTIAL Routine 07/30/2024 10:08 AM EST Lung cancer (CMS/HCC V24, CMS/HCC V28) Drug therapy COMPREHENSIVE METABOLIC PANEL Routine 07/30/2024 10:08 AM EST Lung cancer (CMS/HCC V24, CMS/HCC V28) Drug therapy LIPID PANEL WITH REFLEX TO DIRECT LDL Routine 06/18/2024 11:34 AM EST Hyperlipemia Essential hypertension, malignant from Last 3 Months or Most Recently Relevant to Health Maintenance Results * Cardiac device check - Remote- MURJ (10/22/2024 3:48 PM EDT) Only the most recent of4 resultswithin the time period is included. Date Time Interrogation Session [id number] CV DEVICE CHECK Type Interrogation Session Remote Scheduled CV DEVICE CHECK Implantable Pulse Generator Rod Tape Operator [employer] CV DEVICE CHECK Implantable Pulse Generator Type IPG CV DEVICE CHECK Implantable Pulse Generator Model 2240 Assurity(TM) CV DEVICE CHECK Implantable Pulse Generator Serial Number [id number] CV DEVICE CHECK Implantable Pulse Generator Implant Date [id number] CV DEVICE CHECK Battery Remaining Longevity 0.0 CV DEVICE CHECK Battery Voltage 2.590 CV D EVICE CHECK Battery FINAL INSPECTOR TRUCK TRAILER Trigger 2.600 CV DEVICE CHECK Battery Status Recommended Replacement Time CV DEVICE CHECK Basim Statistic RV Percent Paced 3.40 CV DEVICE CHECK Lead Channel Sensing Intrinsic Amplitude 8.700 CV DEVICE CHECK Lead Channel Setting Sensing Sensitivity 2.00 CV DEVICE CHECK Lead Channel Impedance Value 350 CV DEVICE CHECK Lead Channel Setting Pacing Amplitude 2.000 CV DEVICE CHECK Lead Channel Setting Pacing Pulse Width 0.5 CV DEVICE CHECK Basim Setting Mode (NBG Code) VVI CV DEVICE CHECK Basim Setting Lower Rate Limit 60 CV DEVICE CHECK Date of Service 2024-11-15 CV DEVICE CHECK Anatomical Region Laterality Modality Device Interroga tion 10/19/2024 4:00 AM EDT Impressions 10/22/2024 3:44 PM EDT Normal Remote: No Events * Normal Device Function * Alerts or events: None * Battery: HUGO 10/18/24 * Sensing, impedance and thresholds reviewed * Programmed parameters reviewed * Presenting rhythm reviewed * Heart Rate Histograms reviewed * No significant changes noted Additional Notes: Seeing 11/30/24 Narrative Procedure Note Alejandrina Rome, HEALTH AND WELLNESS COORDINATOR - 10/22/2024 IMPRESSION: Normal Remote: No Events * Normal Device Function * Alerts or events: None * Battery: HUGO 10/18/24 * Sensing, impedance and thresholds reviewed * Programmed parameters reviewed * Presenting rhythm reviewed * Heart Rate Histograms reviewed * No significant changes noted Additional Notes: Seeing 11/30/24 Alejandrina Rome NP CV IMPLANTABLE CARDIAC DEVIC E PROCEDURES Final Result * (ABNORMAL) CBC auto differential (10/21/2024 10:41 AM EDT) Only the most recent of6 resultswithin the time period is included. WBC 9.7 4.8 - 10.8 K/mcL LAB HEMETOLOGY METHOD 10/21/2024 11:41 AM [facility] RBC 3.40(L) 4.50 - 5.50 M/mcL LAB HEMETOLOGY METHOD 10/21/2024 11:41 AM EDT [facility] Hemoglobin 11.6(L) 13.5 - 17.5 g/dL LAB HEMETOLOGY METHOD 10/21/2024 11:41 AM [facility] Hematocrit 36.0(L) 42.0 - 54.0 % LAB HEMETOLOGY METHOD 10/21/2024 11:41 AM [facility] MCV 105.3(H) 79.0 - 98.0 FL LAB HEMETOLOGY METHOD 10/21/2024 11:41 AM [facility] MCH 33.9(H) 27.0 - 32.0 pcg LAB HEMETOLOGY METHOD 10/21/2024 11:41 AM [facility] MCHC 32.2 32.0 - 37.0 g/dL LAB HEMETOLOGY METHOD 10/21/2024 11:41 AM [facility] RDW 15.5(H) 11.0 - 15.0 % LAB HEMETOLOGY METHOD 10/21/2024 11:41 AM [facility] Platelets 244 130 - 400 K/mcL LAB HEMETOLOGY METHOD 10/21/2024 11:41 AM [facility] MPV 9.4 7.0 - 11.0 FL LAB HEMETOLOGY METHOD 10/21/2024 11:41 AM [facility] NRBC 0.0 <1.0 % LAB HEMETOLOGY METHOD 10/21/2024 11:41 AM [facility] NRBC Absolute 0.00 <0.10 K/mcL LAB HEMETOLOGY METHOD 10/21/2024 11:41 AM [facility] Neutrophils Relative 77.7 % LAB HEMETOLOGY METHOD 10/21/2024 11:41 AM [facility] Lymphocytes Relative 11.0 % LAB HEMETOLOGY METHOD 10/21/2024 11:41 AM [facility] Monocytes Relative 10.0 % LAB HEMETOLOGY METHOD 10/21/2024 11:41 AM [facility] Eosinophils Relative 0.0 % LAB HEMETOLOGY METHOD 10/21/2024 11:41 AM [facility] Basophils Relative 0.5 % LAB HEMETOLOGY METHOD 10/21/2024 11:41 AM [facility] Immature Granulocytes Relative 0.8 % LAB HEMETOLOGY METHOD 10/21/2024 11:41 AM EDT [facility] Neutrophils Absolute 7.50(H) 1.50 - 7.00 K/[facility] LAB HEMETOLOGY METHOD 10/21/2024 11:41 AM [facility] Lymphocytes Absolute 1.06 1.00 - 5.00 K/[facility] LAB HEMETOLOGY METHOD 10/21/2024 11:41 AM EDT [facility] Monocytes Absolute 0.97 0.20 - 1.00 K/[facility] LAB HEMETOLOGY METHOD 10/21/2024 11:41 AM EDT [facility] Eosinophils Absolute 0.00 0.00 - 0.50 K/[facility] LAB HEMETOLOGY METHOD 10/21/2024 11:41 AM [facility] Basophils Absolute 0.05 0.00 - 0.20 K/[facility] LAB HEMETOLOGY METHOD 10/21/2024 11:41 AM [facility] Immature Granulocytes Absolute 0.08(H) 0.00 - 0.03 K/[facility] LAB HEMETOLOGY METHOD 10/21/2024 11:41 AM [facility] Blood Venous blood specimen / Unknown Venipuncture / Unknown 10/21/2024 10:41 AM EDT 10/21/2024 11:19 AM EDT Urban Walsh MD LAB BLOOD ORDERABLES Final Result [facility] [address] [place] [address], * Thyroid stimulating hormone (10/21/2024 10:41 AM EDT) Only the most recent of6 resultswithin the time period is included. TSH 2.81 0.40 - 4.00 mcIU/mL LAB CHEMISTRY METHOD 10/21/2024 2:14 PM EDT [facility] Blood Venous blood specimen / Unknown Venipuncture / Unknown 10/21/2024 10:41 AM EDT 10/21/2024 11:11 AM EDT us Urban Walsh MD LAB BLOOD ORDERABLES Final Result [facility] [address] [place] [address], * (ABNORMAL) Comprehensive metabolic panel (10/21/2024 10:41 AM EDT) Only the most recent of6 resultswithin the time period is included. Sodium 142 133 - 145 mmol/L LAB CHEMISTRY METHOD 10/21/2024 12:30 PM [facility] Potassium 4.2 3.5 - 5.5 mmol/L LAB CHEMISTRY METHOD 10/21/2024 12:30 PM [facility] Chloride 107 96 - 110 mmol/L LAB CHEMISTRY METHOD 10/21/2024 12:30 PM [facility] CO2 29 21 - 32 mmol/L LAB CHEMISTRY METHOD 10/21/2024 12:30 PM [facility] Anion Gap 6 3 - 11 LAB CHEMISTRY METHOD 10/21/2024 12:30 PM [facility] Glucose 103(H) 70 - 100 mg/dL LAB CHEMISTRY METHOD 10/21/2024 12:30 PM [facility] BUN 31(H) 5 - 25 mg/dL LAB CHEMISTRY METHOD 10/21/2024 12:30 PM [facility] Creatinine 1.06 0.70 - 1.30 mg/dL LAB CHEMISTRY METHOD 10/21/2024 12:30 PM [facility] eGFR 68 >=60 mL/min/1. 73m2 LAB CHEMISTRY METHOD 10/21/2024 12:30 PM [facility] Comment:Calculation based on the??Chronic Kidney Disease Epidemiology Collaboration (CKD-EPI) equation refit??without adjustment for race. BUN/Creatinine Ratio 29.2 LAB CHEMISTRY METHOD 10/21/2024 12:30 PM EDT [facility] [facility] Calcium 9.1 8.5 - 10.5 mg/dL LAB CHEMISTRY METHOD 10/21/2024 12:30 PM EDT [facility] AST (SGOT) 28 10 - 42 unit/L LAB CHEMISTRY METHOD 10/21/2024 12:30 PM EDT [facility] ALT (SGPT) 30 10 - 60 unit/L LAB CHEMISTRY METHOD 10/21/2024 12:30 PM EDT [facility] Alkaline Phosphatase 88 42 - 121 unit/L LAB CHEMISTRY METHOD 10/21/2024 12:[facility] Total Protein 6.0 6.0 - 8.0 g/dL LAB CHEMISTRY METHOD 10/21/2024 12:30 PM [facility] Albumin 2.9(L) 3.2 - 5.0 g/dL LAB CHEMISTRY METHOD 10/21/2024 12:30 PM [facility] Total Bilirubin 0.9 0.0 - 1.4 mg/dL LAB CHEMISTRY METHOD 10/21/2024 12:30 PM EDT [facility] Blood Venous blood specimen / Unknown Venipuncture / Unknown 10/21/2024 10:41 AM EDT 10/21/2024 11:11 AM EDT us Urban Walsh MD LAB BLOOD ORDERABLES Final Result [facility] [address] [place] [address], * CT Chest/Abdomen/Pelvis w Contrast (10/08/2024 1:48 PM EDT) Anatomical Region Laterality Modality Body Computed Tomogra phy 10/12/2024 10:1 1 AM EDT Impressions 10/12/2024 10:37 AM EDT Increasing bilateral pleural fluid and motion limit detail in the lungs. Underlying chronic lung disease. No new measurable lung mass or nodule. Prominent AP window lymph nodes again demonstrated. Retroperitoneal adenopathy which are radiographically stable when compared to most recent previous. ?? No new measurable disease in the abdomen or pelvis -------- FINAL REPORT -------- Dictated By: Jamil Woods Dictated Date: 10/12/2024 10:11 ET Assigned Physician: Jamil Woods Reviewed and Electronically Signed By: Jaiml Woods Signed Date: 10/12/2024 10:37 ET Workstation ID: [id number] Transcribed By: Self Edit Transcribed Date: 10/12/2024 10:11 ET Narrative 10/12/2024 10:37 AM EDT EXAMINATION: CT CHEST, ABDOMEN and PELVIS WITH CONTRAST CLINICAL INFORMATION: Lung cancer. ??Metastatic disease. Restaging COMPARISON: Portions previous CT 07/14/24 ?? TECHNIQUE: Multidetector CT. Examination of the chest, abdomen and pelvis. Multidetector CT. Examination of the chest, abdomen and pelvis following IV administration of nonionic contrast. Reformatting in the coronal and sagittal planes. DLP: 825 mGy-cm Dose optimization was performed including the use of low-dose iterative reconstruction technique with automatic exposure control based on patient size. Type of contrast: ISOVUE 370 Volume of IV contrast: 90 mL Volume of contrast discarded: 0 mL FINDINGS: Motion limits the exam. LUNG: No mass in the trachea or mainstem bronchi. There is narrowing of the transverse diameter of the trachea. ?? Irregular opacity in the central aspect of the left upper lobe on 02/11/24 has resolved and not recurred. No new measurable lung mass or nodule. There is volume loss greatest in the lower lung zones and greater on right than left which makes assessment for mass or nodule difficult. There is severe underlying centrilobular emphysema with cystic changes. MEDIASTINUM: ??There are top normal AP window lymph nodes which appear slightly less prominent when compared to 02/11/24. The more anterior AP window lymph node 10/08/24-0.6 cm (4/57) 07/14/24-0.8 cm 02/11/24-1.1 cm CARDIAC: The heart is enlarged. There is a cardiac lead which causes artifact. The chamber dilation includes the right atrium and left atrium. ?? CORONARY CALCIFICATION: Moderate coronary calcification VASCULAR: There is no thoracic aortic aneurysm. The main pulmonary artery is normal caliber. There is marked distention of the lower portion of the right internal jugular vein. There is extensive arterial calcification. ?? PLEURAL: There is a moderate to large amount of right pleural fluid which has increased. There is a small to moderate amount of left pleural fluid which has increased. ?? AXILLA/CHEST WALL: There are no enlarged axillary lymph nodes. No chest wall mass demonstrated. Artifact related to a power generator in the left upper chest wall. ?? LIVER: The liver is examined during the arterial phase. There are scattered areas of early enhancement. These are nonspecific but moderately concerning. There are innumerable varying sized circumscribed fluid attenuating lesions throughout the liver. There are scattered calcifications or areas of contrast in the right lobe. Comparison of the early enhancing areas in the liver is limited since slight changes in enhancement timing could alter the size. ?? BILIARY TRACT: ??The gallbladder is somewhat contracted. No opaque duct calculus. SPLEEN: No measurable abnormality. ?? PANCREAS: No suspicious mass. No surrounding fluid. ?? ADRENAL GLANDS: Stable appearance of the left adrenal gland. No measurable right adrenal mass. ?? KIDNEYS: The renal contours are irregular. No evidence of obstruction. There are some small cysts. No suspicious renal mass. ?? GASTROINTESTINAL TRACT: No definite colonic mass. No small bowel dilation. No suspicious abnormality of the stomach. ?? URINARY BLADDER: ??No focal abnormality. PELVIC VISCERA: ??No suspicious abnormality. ABDOMINAL WALL: No significant hernia is appreciated. ?? LYMPHOVASCULAR STRUCTURES AND FLUID: Right retroperitoneal mass between the IVC and right alesia of the diaphragm 10/08/24-3.3 x 2.0 cm (4/137) 07/14/24-3.4 x 2.1 cm 01/05/25-2.8 x 1.8 cm Enlarged left retroperitoneal lymph node just inferior to the left renal artery 10/08/24-1.3 cm (4/153) 07/14/24-1.3 cm 01/06/24-1.1 cm Lymph node between the central aspect of the common iliac arteries 10/08/24-0.8 cm (4/191) 07/14/24-0.7 cm 01/06/24-0.7 cm Extensive arterial calcifications. There is a small amount of nonspecific free pelvic fluid. ?? MUSCULOSKELETAL: No acute or suspicious osseous abnormality. ??Extensive degenerative changes. Healed lower left rib deformities. Procedure Note Jamil Woods MD - 10/12/2024 EXAMINATION: CT CHEST, ABDOMEN and PELVIS WITH CONTRAST CLINICAL INFORMATION: Lung cancer. Metastatic disease. Restaging COMPARISON: Portions previous CT 07/14/24 TECHNIQUE: Multidetector CT. Examination of the chest, abdomen and pelvis. Multidetector CT. Examination of the chest, abdomen and pelvis followingIV administration of nonionic contrast. Reformatting in the coronal and sagittal planes. DLP: 825 mGy-cm Dose optimization was performed including the use of low-dose iterativereconstruction technique with automatic exposure control based on patientsize. Type of contrast: ISOVUE 370 Volume of IV contrast: 90 mL Volume of contrast discarded: 0 mL FINDINGS: Motion limits the exam. LUNG: No mass in the trachea or mainstem bronchi. There is narrowing ofthe transverse diameter of the trachea. Irregular opacity in the central aspect of the left upper lobe on 02/11/24as resolved and not recurred. No new measurable lung mass or nodule. There is volume loss greatest in the lower lung zones and greater on rightthan left which makes assessment for mass or nodule difficult. There issevere underlying centrilobular emphysema with cystic changes. MEDIASTINUM: There are top normal AP window lymph nodes which appearslightly less prominent when compared to 02/11/24. The more anterior APwindow lymph node 10/08/24-0.6 cm (4/57) 07/14/24-0.8 cm 02/11/24-1.1 cm CARDIAC: The heart is enlarged. There is a cardiac lead which causesartifact. The chamber dilation includes the right atrium and left atrium. CORONARY CALCIFICATION: Moderate coronary calcification VASCULAR: There is no thoracic aortic aneurysm. The main pulmonary arteryis normal caliber. There is marked distention of the lower portion of theright internal jugular vein. There is extensive arterial calcification. PLEURAL: There is a moderate to large amount of right pleural fluid whichhas increased. There is a small to moderate amount of left pleural fluidwhich has increased. AXILLA/CHEST WALL: There are no enlarged axillary lymph nodes. No chestwall mass demonstrated. Artifact related to a power generator in the leftupper chest wall. LIVER: The liver is examined during the arterial phase. There arescattered areas of early enhancement. These are nonspecific but moderatelyconcerning. There are innumerable varying sized circumscribed fluidattenuating lesions throughout the liver. There are scatteredcalcifications or areas of contrast in the right lobe. Comparison of theearly enhancing areas in the liver is limited since slight changes inenhancement timing could alter the size. BILIARY TRACT: The gallbladder is somewhat contracted. No opaque ductcalculus. SPLEEN: No measurable abnormality. PANCREAS: No suspicious mass. No surrounding fluid. ADRENAL GLANDS: Stable appearance of the left adrenal gland. No measurableright adrenal mass. KIDNEYS: The renal contours are irregular. No evidence of obstruction.There are some small cysts. No suspicious renal mass. GASTROINTESTINAL TRACT: No definite colonic mass. No small bowel dilation.No suspicious abnormality of the stomach. URINARY BLADDER: No focal abnormality. PELVIC VISCERA: No suspicious abnormality. ABDOMINAL WALL: No significant hernia is appreciated. LYMPHOVASCULAR STRUCTURES AND FLUID: Right retroperitoneal mass between the IVC and right alesia of thediaphragm 10/08/24-3.3 x 2.0 cm (4/137) 07/14/24-3.4 x 2.1 cm 01/05/25-2.8 x 1.8 cm Enlarged left retroperitoneal lymph node just inferior to the left renalartery 10/08/24-1.3 cm (/153) 07/14/24-1.3 cm 01/06/24-1.1 cm Lymph node between the central aspect of the common iliac arteries 10/08/24-0.8 cm (191) 07/14/24-0.7 cm 01/06/24-0.7 cm Extensive arterial calcifications. There is a small amount of nonspecific free pelvic fluid. MUSCULOSKELETAL: No acute or suspicious osseous abnormality. Extensivedegenerative changes. Healed lower left rib deformities. IMPRESSION: Increasing bilateral pleural fluid and motion limit detail in the lungs. Underlying chronic lung disease. No new measurable lung mass or nodule. Prominent AP window lymph nodes again demonstrated. Retroperitoneal adenopathy which are radiographically stable when comparedto most recent previous. No new measurable disease in the abdomen or pelvis -------- FINAL REPORT -------- Dictated By: Jamil Woods Dictated Date: 10/12/2024 10:11 ET Assigned Physician: Jamil Woods Reviewed and Electronically Signed By: Jamil Woods Signed Date: 10/12/2024 10:37 ET Workstation ID: [id number] Transcribed By: Self Edit Transcribed Date: 10/12/2024 10:11 ET us Urban Walsh MD IMG CT PROCEDURES Final Res ult * Magnesium (08/31/2024 8:52 AM EST) [facility] Magnesium 2.0 1.9 - 2.6 mg/dL LAB CHEMISTRY METHOD 08/31/2024 11:41 AM EST [facility] Blood Venous blood specimen / Unknown Venipuncture / Unknown 08/31/2024 8:52 AM EST 08/31/2024 10:44 AM EST Lazaro Solis MD LAB BLOOD ORDERABLES Final Resul t [facility] [address] [place] [address], [place] [phone] * Lipid panel with reflex to direct LDL (06/18/2024 11:34 AM EST) Pathologist [facility] Cholesterol 148 0 - 200 mg/dL LAB CHEMISTRY METHOD 06/18/2024 2:04 PM EST [facility] Triglycerides 69 0 - 150 mg/dL LAB CHEMISTRY METHOD 06/18/2024 2:04 PM EST [facility] HDL 78 >=40 mg/dL LAB CHEMISTRY METHOD 06/18/2024 2:04 PM EST [facility] LDL Calculated 56 0 - 100 mg/dL LAB CHEMISTRY METHOD 06/18/2024 2:04 PM EST [facility] VLDL Cholesterol Davidson 13.8 mg/dL LAB CHEMISTRY METHOD 06/18/2024 2:04 PM EST [facility] Non HDL Chol. (LDL+VLDL) 70 <145 mg/dL LAB CHEMISTRY METHOD 06/18/2024 2:04 PM EST [facility] Chol/HDL Ratio 1.9 0.0 - 4.4 LAB CHEMISTRY METHOD 06/18/2024 2:04 PM EST [facility] Blood Venous blood specimen / Unknown Venipuncture / Unknown 06/18/2024 11:34 AM EST 06/18/2024 12:35 PM EST us Chuck Haskins MD LAB BLOOD ORDERABLES Terri jojo Result [facility] [address] [place] [address], [place] [phone] from Last 3 Months or Most Recently Relevant to Health Maintenance Insurance MEDICARE [facility] Care Teams Linotype Worker Relationship Specialty Start Date End Date Chuck Haskins MD [address] [facility] - General 01/13/13
--- OUTSIDE RECORDS SUMMARY | 2024-10-27 10:29 | XMS_ITS | Encounter Summary ---
Author Organization [facility] [place] [address] Care Team Providers Care Minister Assistant Name Role Phone Chuck Haskins MD Primary Care Provider [phone] Encounter Details Date Type Department Care Team (Late st Contact Info) Description 04/19/2024 9:24 AM EDT Hospital Encounter TH HISTORIC ENCOUNTERS EASTERN CONVERSION ONLY Social History Tobacco Use Types Packs/Day Years [...] Sign Reading Time Taken Comments Blood Pressure - - Pulse - - Temperature - - Respiratory Rate - - Oxygen Saturation - - Inhaled Oxygen Concentration - - Weight 68.9 kg (152 lb) 04/15/2024 10:13 AM EDT Height 177.8 cm (5' 10 ) 02/03/2024 11:42 AM EDT Body Mass Index 23.81 04/14/2024 9:18 AM EDT documented in this encounter Progress Notes * Historical, Notes Results - 04/19/2024 9:30 AM EDT Pt arrives with with daughter for C3 - pembrolizumab. Pt assessed and reports he is doing okay. Pt has some concerns about his appetite being fair, states hes not too hungry in the morningso he drinks an ensure. Dinner seems to be his best meal . Pt denies any itching or rash. Labs reviewed , medication released from pharmacy. Meenu at chair side to speak with pt and his - updated on current weight. IV inserted without issue , pt tolerated well. Pembro infused without incident. Line flushed and angio removed. Pt reports feeling well. Calendar of next appointment given to pts . Discharged with steady gait with at side. documented in this encounter Plan of Treatment Upcoming Encounters Date Type Department Care Team (Latest Contact Info) Description 11/12/2024 10:15 AM EDT Office Visit [facility] Hematology Oncology [address] [place] [address] Urban Walsh MD [address] [place] [address] 11/15/2024 9:00 AM EDT Appointment [facility] Infusion Center 271 [facility] [address] [place] [address] 11/30/2024 2:30 PM EDT Office Visit [facility] - [facility] [address] [phone] Lazaro Solis MD [address] [address] 12/03/2024 9:00 AM EDT Hospital Encounter [facility] Cardiac Fitter / Welder [address] [place] [phone] Keven Stinson MD [address] [address] Pacemaker end of life 12/03/2024 9:00 AM EDT - 12/03/2024 10:00 AM EDT Surgery [facility] Cardiac Fitter / Welder [address] [place] [phone] Keven Stinson MD [address] [facility] [address] [place] [address] Remove & replace PPM dual chamber generator only [23872 (CPT??)] documented as of this encounter Visit Diagnoses Not on filedocumented in this encounter Care Teams Minister Assistant Relationship Specialty Start Date End Date Chuck Haskins MD 300 [facility] [address] [place], [place] PCP - General 01/13/13 documented as of this encounter
--- OUTSIDE RECORDS SUMMARY | 2024-10-27 10:29 | XMS_ITS | Encounter Summary ---
Author Organization [facility] [place] [address] Care Team Providers Care Jewel Hole Driller Name Role Phone Chuck Haskins MD Primary Care Provider [phone] Encounter Details Date Type Department Care Team (Late st Contact Info) Description 04/15/2024 10:15 AM EDT Hospital Encounter TH HISTORIC ENCOUNTERS EASTERN CONVERSION ONLY Urban Walsh MD [address] [place] [address] Social History Tobacco Use Types Packs/Day Years [...] Description 11/12/2024 10:15 AM EDT Office Visit [facility] Hematology Oncology [address] [place] [address] Urban Walsh MD [address] [place] [address] 11/15/2024 9:00 AM EDT Appointment [facility] Infusion Center 271 [facility] [address]nd [place] [address] 11/30/2024 2:30 PM EDT Office Visit [facility] - [facility] [address] [phone] Lazaro Solis MD [address] [address] 12/03/2024 9:00 AM EDT Hospital Encounter [facility] Cardiac Shelving Supervisor [address] [place] [address] Keven Stinson MD [address] [place] [address] Pacemaker end of life 12/03/2024 9:00 AM EDT - 12/03/2024 10:00 AM EDT Surgery [facility] Cardiac Shelving Supervisor [address] [place] [address] Keven Stinson MD [address] [address] Remove & replace PPM dual chamber generator only [09306 (CPT??)] documented as of this encounter Visit Diagnoses Not on filedocumented in this encounter Care Teams Jewel Hole Driller Relationship Specialty Start Date End Date Chuck Haskins MD [facility] [address] PCP - General 01/13/13 documented as of this encounter
--- OUTSIDE RECORDS SUMMARY | 2024-10-27 10:29 | XMS_ITS | Encounter Summary ---
Author Organization [facility] [place] [address] Care Team Providers Care Rand Sewer Name Role Phone Chuck Haskins MD Primary Care Provider [phone] Reason for Visit * Reason Onset Date Comments Medication 10/26/2024 Lung Fluid Encounter Details Date Type Department Care Team (Late st Contact Info) Description 10/26/2024 Telephone [facility] Cardiology Associates - [facility] [address] 300 [facility] [address] [place] [phone] Lazaro Solis MD 300 [facility] [address] [place] [address] Medication (Lung Fluid) Social History Tobacco Use Types Packs/Day Years [...] as of this encounter Progress Notes * Simi Ricketts MA - 10/26/2024 2:30 PM EDT Adrianna, pts made aware * GABE Ramos - 10/26/2024 2:18 PM EDT I would recommend he see the 8th grade teacher first tomorrow to review the CT findings. Shows a moderate to large R pleural effusion and small to moderate left pleural effusion. Not sure if this is going to require an intervention vs increasing oral diuretic. * Tiffanie Lind RN - 10/26/2024 1:52 PM EDT Pt taking Furosemide 20 mg 1 tab daily Pt SOB with exertion on O2 NC 2-2.5, sleeps with one pillow Denies PND, Orthopnea Edema ankles to lower calf Follows Low salt diet did have decreased appetite now taking appetite enhancer carroll 10/26 148 10/25 148.6 10/[address] SCAN results are in EPIC. Aware YZ is [facility] this week, DG is not in office this afternoon Seeing Pulmonary dr tomorrow * Yung Calzada - 10/26/2024 10:14 AM EDT Patient called requesting an increase in his Lasix dose. He recently underwent a CT scan of the lungs related to his history of lung cancer, which reportedly showed increased fluid in both lungs. According to the patient, Dr. Coates recommended evaluation by a 8th grade teacher; he is scheduled to see in [place] tomorrow. Patient also stated that his oncologist, Dr. Walsh, informed him that when fluid is present in both lungs, it is most likely cardiac-related. Patient requests that this information be relayed to Dr. Solis for review and consideration regarding possible adjustment of his Lasix dosage? documented in this encounter Plan of Treatment Upcoming Encounters Date Type Department Care Team (Latest Contact Info) Description 11/12/2024 10:15 AM EDT Office Visit [facility] Hematology Oncology [address] [place] [phone] Urban Walsh MD [address] [place] [phone] 11/15/2024 9:00 AM EDT Appointment [facility] Infusion Center 271 [facility] [address]nd [place] [phone] 11/30/2024 2:30 PM EDT Office Visit [facility] Cardiology Associates - [facility] [address] [phone] Lazaro Solis MD [address] [address] 12/03/2024 9:00 AM EDT Hospital Encounter [facility] Cardiac Color Stripper [address] [place] [phone] Keven Stinson MD [address] [address] Pacemaker end of life 12/03/2024 9:00 AM EDT - 12/03/2024 10:00 AM EDT Surgery [facility] Cardiac Color Stripper [address] [place] [phone] Keven Stinson MD [address] [address] Remove & replace PPM dual chamber generator only [37331 (CPT??)] documented as of this encounter Visit Diagnoses Not on filedocumented in this encounter Care Teams Rand Sewer Relationship Specialty Start Date End Date Chuck Haskins MD [address] [place] [address] PCP - General 01/13/13 documented as of this encounter
--- OUTSIDE RECORDS SUMMARY | 2024-10-27 10:29 | XMS_ITS | Encounter Summary ---
Author Organization [facility] [place] [address] Care Team Providers Care Head Inspector Name Role Phone Chuck Haskins MD Primary Care Provider [phone] Encounter Details Date Type Department Care Team (Late st Contact Info) Description 10/22/2024 3:50 PM EDT Ancillary Procedure [facility] Cardiology Associates - [facility] [address] 300 [facility] 154 [place] [address] Social History Tobacco Use Types Packs/Day Years [...] Description 11/12/2024 10:15 AM EDT Office Visit [facility] Hematology Oncology [address] [place] [address] Urban Walsh MD [address] [place] [address] 11/15/2024 9:00 AM EDT Appointment [facility] Infusion Center 271 [facility] [address]nd [place] [phone] 11/30/2024 2:30 PM EDT Office Visit [facility] Cardiology Associates - [address] [phone] Lazaro Solis MD [address] [address] 12/03/2024 9:00 AM EDT Hospital Encounter [facility] Cardiac Sweatband Cutting Machine Operator [address] [place] [phone] Keven Stinson MD [address] [address] Pacemaker end of life 12/03/2024 9:00 AM EDT - 12/03/2024 10:00 AM EDT Surgery [facility] Cardiac Sweatband Cutting Machine Operator [address] [place] [phone] Keven Stinson MD [address] [address] Remove & replace PPM dual chamber generator only [40363 (CPT??)] documented as of this encounter Procedures Procedure Name Priority Date/Time Associated Diagnosis Comments CARDIAC DEVICE CHECK- REMOTE- MURJ Routine 10/22/2024 3:48 PM EDT documented in this encounter Results * Cardiac device check - Remote- MURJ (10/22/2024 3:48 PM EDT) Date Time Interrogation Session [id number] CV DEVICE CHECK Type Interrogation Session Remote Scheduled CV DEVICE CHECK Implantable Pulse Generator [employer] CV DEVICE CHECK Implantable Pulse Generator Type IPG CV DEVICE CHECK Implantable Pulse Generator Model 2240 Assurity(TM) CV DEVICE CHECK Implantable Pulse Generator Serial Number [id number] CV DEVICE CHECK Implantable Pulse Generator Implant Date [id number] CV DEVICE CHECK Battery Remaining Longevity 0.0 CV DEVICE CHECK Battery Voltage 2.590 CV D EVICE CHECK Battery TUNNEL DRIER OPERATOR Trigger 2.600 CV DEVICE CHECK Battery Status [...] No significant changes noted Additional Notes: Seeing YZ 11/30/24 Narrative Procedure Note Alejandrina Rome, RECORD PRESSMAN - 10/22/2024 IMPRESSION: Normal Remote: No Events * Normal Device Function * Alerts or events: None * Battery: HUGO 10/18/24 * Sensing, impedance and thresholds reviewed * Programmed parameters reviewed * Presenting rhythm reviewed * Heart Rate Histograms reviewed * No significant changes noted Additional Notes: Seeing YZ 11/30/24 Alejandrina Rome RECORD PRESSMAN CV IMPLANTABLE CARDIAC DEVIC E PROCEDURES Final Result documented in this encounter Visit Diagnoses Not on filedocumented in this encounter Care Teams Head Inspector Relationship Specialty Start Date End Date Chuck Haskins MD [facility] Nilomaria elena Elzbieta [address] PCP - General 01/13/13 documented as of this encounter
== END 2024-10-27 10:24 | disposition home or self-care (01) ==
LOC: HO.HPS 09:41
PROVIDERS: PCP Internal Medicine; Visit Provider Internal Medicine
DX: C34.90 Malignant neoplasm of unspecified part of unspecified bronchus or lung (principal); R09.02 Hypoxemia; J44.9 Chronic obstructive pulmonary disease, unspecified; J90 Pleural effusion, not elsewhere classified
CPT/HCPCS: 99213

== ENCOUNTER → 2024-10-27 09:41 | Outpatient (BNVA) | payer MEDICARE, SELFPAY | PROVIDERS: PCP Internal Medicine; Visit Provider Internal Medicine | DX: J44.9 Chronic obstructive pulmonary disease, unspecified (principal); J90 Pleural effusion, not elsewhere classified; C34.90 Malignant neoplasm of unspecified part of unspecified bronchus or lung; R09.02 Hypoxemia; Z99.81 Dependence on supplemental oxygen | CPT/HCPCS: 99212 ==